=== PATIENT | male | born 1970 | race Caucasian/White ===

== ENCOUNTER 2017-11-06 16:35 | Observation (INO) | payer BC, OTHER ==
[2017-11-06 17:17] LABS: ABS Basophils 0.1 10^3/ul (0-0.2); ABS Eosinophils 0.2 10^3/ul (0-0.6); ABS Lymphocytes 2.6 10^3/ul (1.0-4.8); ABS Monocytes 0.8 10^3/ul (0-0.8); ABS Neutrophils 6.9 10^3/ul (1.5-7.7); ABS Nucleated RBC 0 10^3/ul; Eosinophil % 1.9 % (0-6); Hematocrit 47 % (42-52); Hemoglobin 16.4 g/dl (14.0-18.0); Lymphocyte % 24.7 % (25-47); Mean Corpuscular HGB Conc 35 g/dl (31-36); Mean Corpuscular Hemoglobin 32 pg (27-31); Mean Corpuscular Volume 90 fL (80-94); Mean Platelet Volume 7.3 um3 (7.4-10.4); Nucleated Red Blood Cells % 0.1; Platelet Count 219 10^3/ul (150-450); Red Blood Count 5.21 10^6/ul (4.00-5.40); Red Cell Distribution Width 14 % (10.5-15); White Blood Count 10.6 10^3/ul (3.5-10.8)
[2017-11-06] MEDS ORDERED: Nitroglycerin TAB 0.4 MG* 0.4 MG TAB SL ONE (17:23)
[2017-11-06] MEDS ORDERED: Aspirin 81 mg CHEW TAB* 81 MG TAB.CHEW PO ONE (17:23)
[2017-11-06 17:34] LABS: EGFR Non-African American 98.4 (>60)
--- NOTE | 2017-11-06 18:17 | RAD ---
indication: Dizziness and left shoulder pain COMPARISON: None A CT scan of the brain and c-spine was performed without intravenous contrast enhancement. Contiguous axial sections were obtained from the lung apices through the vertex. BRAIN: The ventricles, cisterns and sulci are within normal limits. No significant focal abnormality or mass effect is seen. The calderon-white differentiation is adequately maintained. There is no intracranial hemorrhage. Incidentally noted is hyperostosis frontalis interna. The calvarium is otherwise intact. The mastoid air cells are appropriately aerated. The visualized paranasal sinuses are clear. C-SPINE: On the sagittal view images the vertebral bodies and bilateral facet joints are correctly aligned. The dens is intact and the atlantoaxial interval is not widened. The intervertebral body heights are maintained. There is loss of intervertebral disc height at the lower cervical spine most severely affecting C6/C7 where there is vacuum disc phenomenon. There is anterior marginal osteophyte formation at C4/C5. There is no hyperdense material in the cervical canal to indicate hemorrhage. The visualized musculature and soft tissues are normal. At the level 2 cervical chain there are top normal lymph nodes measuring 1.4 cm in short axis diameter (coronal image 14). At the right level 3 cervical chain there is a lymph node measuring 8 mm in short axis diameter, again top normal but not pathologically enlarged. The visualized portion of the lung apices are clear. IMPRESSION: 1. No CT apparent acute abnormality of the brain. 2. Degenerative changes of the cervical spine without acute fracture or dislocation. 3. Top normal but not pathologically enlarged cervical chain lymph nodes.
[2017-11-06] MEDS ORDERED: hydrALAZINE IV* 20 MG/ML VIAL IV SLOW PU PRN (18:39)
[2017-11-06] MEDS ORDERED: Acetaminophen TAB* 325 MG PO PRN (18:42)
--- NOTE | 2017-11-06 19:16 | RAD ---
INDICATION: Chest pain x2 days COMPARISON: Chest x-ray dated March 09, 2005 TECHNIQUE: Single AP portable view of the chest was obtained. FINDINGS: Image quality is compromised due to the relative inferiority of a portable chest x-ray and by the patient's large body habitus. The heart appears enlarged. The pulmonary vasculature appears engorged and indistinct. There are hazy densities obscuring the bilateral lower lungs. There is bibasilar costophrenic angle blunting. Visualized bones are normal for the patient's age. IMPRESSION: In the correct clinical setting chest x-ray findings could BE compatible with cardiogenic pulmonary edema.
--- NOTE | 2017-11-06 21:44 | ED ---
Ari Abarca Jade, scribed for Rhina Maldonado MD on 11/06/17 at 1727 . Complex/Multi-Sys Presentation - HPI Summary HPI Summary: Pt is a 47 y/o male who presents to the ED c/o dizziness and neck pain. He states he woke up yesterday morning with pain in his left neck, left shoulder, and left ear, he thought due to sleeping position. Today he became dizzy when standing up quickly from bending over. Pt denies any LOC, CP, or trauma. He states the pain is non-radiating, and he has 4/10 level pain with movement of his neck. Pt took Ibuprofen yesterday, but denies any ASA. He had HTN and was borderline-diabetic, but is no longer hypertensive due to recent weight loss. Extensive FHx of heart disease: his father had an ascending aortic aneurysm at 52 y/o, 2 AAA, HTN, and DM, and his grandmother also had a AAA. Pt denies any PMHx of blood clots. - History Of Current Complaint Chief Complaint: EDChestPainROMI Time Seen by Provider: 11/06/17 16:59 Hx Obtained From: Patient Onset/Duration: Gradual Onset, Lasting Days - 2, Still Present Timing: Constant Aggravating Factor(s): Moving neck Associated Signs And Symptoms: Negative: Chest Pain - Allergies/Home Medications Allergies/Adverse Reactions: Allergies Allergy/AdvReac Type Severity Reaction Status Date / Time No Known Allergies Allergy Verified 11/06/17 16:41 Home Medications: Home Medications NK [No Home Medications Reported] 11/06/17 [History Confirmed 11/06/17] PMH/Surg Hx/FS Hx/Imm Hx Endocrine/Hematology History: Denies: Hx Blood Disorders - Blood clots, Hx Diabetes Cardiovascular History: Reports: Hx Hypertension - no meds, resolved due to weight loss Denies: Hx Deep Vein Thrombosis - Surgical History Surgery Procedure, Year, and Place: hernia repair x 6 Infectious Disease History: No Infectious Disease History: Denies: Traveled Outside the [place] in Last 30 Days - Family History Known Family History: Positive: Cardiac Disease - Ascending aortic aneurysm, AAA , HTN, Diabetes - Father - Social History Alcohol Use: None Substance Use Type: Reports: None Smoking Status (MU): Never Smoked Tobacco Review of Systems Negative: Chest Pain Positive: Myalgia - Left neck, ear, and shoulder Neurological: Other - Dizziness, NEGATIVE: LOC All Other Systems Reviewed And Are Negative: Yes Physical Exam - Summary Physical Exam Summary: GENERAL: Patient is a well-developed and nourished M who is lying comfortable in the stretcher. Patient is not in any acute respiratory distress. HEAD AND FACE: Normocephalic. EYES: PERRLA, EOMI x 2. EARS: Hearing grossly intact. MOUTH: Oropharynx within normal limits. NECK: Supple, trachea is midline, no adenopathy, no JVD, no carotid bruit. Tenderness to palpation behind left ear and by lateral left neck. CHEST: Symmetric, no tenderness at palpation LUNGS: Clear to auscultation bilaterally. No wheezing or crackles. CVS: Regular rate and rhythm, S1 and S2 present, no murmurs or gallops appreciated. ABDOMEN: Soft, non-tender. Bowel sounds are normal. No abdominal abnormal pulsations. EXTREMITIES: Full ROM in all major joints, no edema, no cyanosis or clubbing. NEURO: Alert and oriented x 3. No acute neurological deficits. Speech is normal and follows commands. SKIN: Dry and warm. GCS: 15 Triage Information Reviewed: Yes Vital Signs On Initial Exam: Initial Vitals Temp Pulse Resp BP Pulse Ox 98.9 F 67 17 220/82 98 11/06/17 16:37 11/06/17 16:37 11/06/17 16:37 11/06/17 16:37 11/06/17 16:37 Vital Signs Reviewed: Yes Diagnostics - Vital Signs Vital Signs Temp Pulse Resp BP Pulse Ox 11/06/17 16:37 98.9 F 67 17 220/82 98 - Laboratory Lab Results: Lab Results 11/06/17 Range/Units 17:09 WBC 10.6 (3.5-10.8) 10^3/ul RBC 5.21 (4.00-5.40) 10^6/ul Hgb 16.4 (14.0-18.0) g/dl Hct 47 (42-52) % MCV 90 (80-94) fL MCH 32 H (27-31) pg MCHC 35 (31-36) g/dl RDW 14 (10.5-15) % Plt Count 219 (150-450) 10^3/ul MPV 7.3 L (7.4-10.4) um3 Neut % (Auto) 64.8 (38-83) % Lymph % (Auto) 24.7 L (25-47) % [place] % (Auto) 7.8 H (0-7) % Eos % (Auto) 1.9 (0-6) % Baso % (Auto) 0.8 (0-2) % Absolute Neuts (auto) 6.9 (1.5-7.7) 10^3/ul Absolute Lymphs (auto) 2.6 (1.0-4.8) 10^3/ul Absolute Monos (auto) 0.8 (0-0.8) 10^3/ul Absolute Eos (auto) 0.2 (0-0.6) 10^3/ul Absolute Basos (auto) 0.1 (0-0.2) 10^3/ul Absolute Nucleated RBC 0 10^3/ul Nucleated RBC % 0.1 Result Diagrams: 11/06/17 17:09 11/06/17 17:09 Lab Statement: Any lab studies that have been ordered have been reviewed, and results considered in the medical decision making process. - Radiology CXR Xray Interpretation: Positive (See Comments) - 16:47: In the correct clinical setting chest x-ray findings could BE compatible with cardiogenic pulmonary edema. ED physician reviewed radiology report. Radiology Interpretation Completed By: Radiologist - CT Cervical Spine CT CT Interpretation Completed By: Radiologist - 17:22: 1. No CT apparent acute abnormality of the brain. 2. Degenerative changes of the cervical spine without acute fracture or dislocation. 3. Top normal but not pathologically enlarged cervical chain lymph nodes. ED physician reviewed radiology report. Brain CT CT Interpretation Completed By: Radiologist - 17:22: 1. No CT apparent acute abnormality of the brain. 2. Degenerative changes of the cervical spine without acute fracture or dislocation. 3. Top normal but not pathologically enlarged cervical chain lymph nodes. ED physician reviewed radiology report. - EKG 16:36 Cardiac Rate: NL - 66 bpm EKG Rhythm: Sinus Rhythm EKG Interpretation: Some ST elevation in V1, V2, V3, most likely secondary to LVH Complex Multi-Symp Course/Dx Course Of Treatment: Pt is a 47 y/o male who presents to the ED c/o dizziness and neck pain. He states he woke up yesterday morning with pain in his left neck , left shoulder, and left ear, he thought due to sleeping position. Today he became dizzy when standing up quickly from bending over. Pt denies any LOC, CP, or trauma. He states the pain is non-radiating, and he has 4/10 level pain with movement of his neck. Pt took Ibuprofen yesterday, but denies any ASA. He had HTN and was borderline-diabetic, but is no longer hypertensive due to recent weight loss. Extensive FHx of heart disease: his father had an ascending aortic aneurysm at 52 y/o, 2 AAA, HTN, and DM, and his grandmother also had a AAA. Pt denies any PMHx of blood clots. The physical exam revealed tenderness to palpation behind left ear and by lateral left neck, and a GCS of 15. A CXR revealed cardiogenic pulmonary edema. A brain and cervical spine CT revealed degenerative changes of the cervical spine. An EKG revealed normal rate at 66 bpm, normal rhythm, and some ST elevation in V1, V2, V3, most likely secondary to LVH. Dr. Billingsley spoke to Dr. Enriquez, who reviewed the EKG and thinks the ST elevation is secondary to LVH, and is not a STEMI. The workup was remarkable for glucose of 173 and a hemoglobin A1C of 7.6. Final dx is atypical chest pain. Dr. Lyon accepts the pt for admission for ACS evaluation given high HEART score. - Diagnoses Provider Diagnoses: Atypical chest pain - Physician Notifications Discussed Care Of Patient With: Sindy Enriquez Time Discussed With Above Provider: 17:00 Instructed by Provider To: Other - Dr. Billingsley spoke to Dr. Enriquez, who reviewed the EKG and thinks the ST elevation is secondary to LVH, and is not a STEMI. Discharge - Sign-Out/Discharge Documenting (check all that apply): Discharge/Admit/Transfer - Admit - Discharge Plan Condition: Stable Disposition: ADMITTED TO [facility] - Billing Disposition and Condition Condition: STABLE Disposition: Admitted to [facility] The documentation as recorded by the Ari sarmiento Jade accurately reflects the service I personally performed and the decisions made by me, Rhina Maldonado MD.
[2017-11-06] MEDS: Heparin VIAL(*) 5000 UNITS/ML VIAL (FIVE THOUSAND) SUBCUT SCH (22:39)
[2017-11-06] MEDS: Lisinopril TAB* 5 MG PO SCH (22:40)
--- NOTE | 2017-11-07 00:40 | HP ---
HOSPITAL MEDICINE HISTORY AND PHYSICAL: DATE OF ADMISSION: 11/06/17 PRIMARY CARE PHYSICIAN: There is no primary care physician. ATTENDING PHYSICIAN: Dr. Remy Salazar * (dictation provided by Erica Bourne NP). CHIEF COMPLAINT: Left-sided neck pain and episode of presyncope. HISTORY OF PRESENT ILLNESS: Mr. Serrano is a 47-year-old male with no significant past medical history. He states that he has recently lost about 50 pounds by improving his diet and being more active. He does not have primary care physician, but states that he checks his blood sugar every morning and notes that it has been about 140 in the a.m. fasting. He also checks his blood pressure and notices that it has been about 140/70. He yesterday described having an episode where he had pain in the left side of his neck. It radiated from his left ear down to the tip of his left shoulder. He noted it in the morning. 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 Today, he was lifting a 50-pound bag of pheasant feed and to do this, he had to bend at the waist and reach down. When he went to stand back up, he felt very lightheaded and like he was going to pass out. He describes feeling "super drunk." He did not really notice that he had this pain in his neck at the same time as this presyncopal episode. Because of the pain in his neck and now this episode of feeling very lightheaded, he decided to come to the emergency room for evaluation. He denies any headaches, fevers, chills, cough, chest pain, nausea, vomiting, diarrhea, or abdominal pain. He has been eating and drinking normally. In the emergency room, Mr. Serrano was noted to have a significantly elevated blood pressure to 220/82 on arrival. At the time of my examination, it is 176/ 78. He has not received any medications other than nitroglycerin tab. He had a troponin, which was 0.02. He had an EKG, which showed concern for multiple LVH criteria with poor R-wave progression and suggestion of ST elevations in V2 , V3, more likely just LVH. Because of the neck pain, he had a CT brain, which showed no acute abnormality and a cervical spine CT that only showed some top normal cervical lymph nodes in the cervical chain, but not pathologically enlarged. His labs were unremarkable. PAST MEDICAL HISTORY: Only noted for vein stripping on his lower extremities. MEDICATIONS: None. ALLERGIES: None. FAMILY HISTORY: The patient reports his mother in a car accident. His father is alive and well, but he had a history of aortic aneurysm 10 years ago. He also has hypertension and diabetes. SOCIAL HISTORY: The patient has never been a smoker. He drinks alcohol occasionally. No reported drug use. He states his dad will be the healthcare proxy. REVIEW OF SYSTEMS: A 14-point review of systems was completed with Mr. Serrano and all those not mentioned above were negative. PHYSICAL EXAMINATION GENERAL: Mr. Serrano is sitting in the bed with his friend at the bedside. He is in no acute distress. VITAL SIGNS: Temperature 98.9, pulse rate 65, respiratory rate 26, O2 saturation 94% on room air, blood pressure 185/78. NECK: The patient's neck was palpated and he has significant tenderness along the top of both shoulders with tender tight muscles. LUNGS: Clear to auscultation bilaterally with no accessory muscle use and good aeration. HEART: S1, S2. There appears to be a systolic murmur at the sternal border. There are no carotid bruits. The rhythm is regular. ABDOMEN: Soft, nontender with bowel sounds positive x4. EXTREMITIES: No cyanosis or edema. NEURO: He is alert. He is oriented x3. He moves all extremities equally. There is no facial asymmetry or focal weakness. Extraocular movements are intact. SKIN: Intact and the patient is wearing bilateral lower extremity venous stasis compression stockings. DIAGNOSTIC STUDIES/LAB DATA: WBC 10.6, hemoglobin 16.4, hematocrit 47, platelet count 219. Sodium 144, potassium 4.0, chloride 103, serum bicarbonate 33, BUN 14, creatinine 0.84, glucose 174 EKG shows sinus rhythm with LVH and I do not see any clear evidence of ischemia. I do see that the J-point is elevated in V2, V3, V4. CT brain and cervical spine CT read as follows: "No CT apparent acute abnormality of the brain. Degenerative changes of the cervical spine without acute fracture, dislocation. Top normal but not pathologically enlarged cervical chain lymph nodes." ASSESSMENT: Mr. Serrano is a 47-year-old male with no known past medical history, who presents today to the hospital with concern for episode where his left side of his neck was hurting and then an episode of presyncope when he bent over. Our plans are for observation in the hospital for the followin. Left neck pain. The patient's CT brain and cervical spine CT are negative. He has no carotid bruit. He is tender to palpation along the trapezius muscles. I suspect this is a simple muscle strain. He is asymptomatic at this moment. He can have analgesic such acetaminophen p.r.n. 2. Presyncope. The patient states that this happened in the setting of bending over and rapidly standing up and lifting a large bag of bird feed. Question whether or not this was somewhat related to uncontrolled hypertension as his blood pressure has been running over 220 here in the emergency room. Our plans will be to treat as per below. 3. Hypertensive emergency. The patient's blood pressure was in the 220s. He is describing episodes of presyncope and he meets criteria for hypertensive emergency. His blood pressure is slightly better even without treatment, now it is 180/80s. He will be started on lisinopril (as I am very suspicious that he will have a positive diagnosis for diabetes) with hydralazine p.r.n. and we can titrate his medications as needed. 4. Left ventricular hypertrophy. The patient's EKG is concerning for significant left ventricular hypertrophy and it seems that the patient does perhaps have ongstanding untreated hypertension now with presyncopal episode. I think the best plan will be to obtain a transthoracic echocardiogram. The patient has no evidence of chest pain. Plan to continue to trend troponins; an monitor on the telemetry unit. If the patient does develop chest pain, other symptoms or troponins rise, then a stress testing can be considered. 5. Elevated blood sugar. The patient's blood sugar was reported to be 140 at home in the a.m. I am highly suspicious that he will have a diagnosis of diabetes and hemoglobin A1c has been added on. 6. Obesity. The patient states he has lost about 50 pounds, but he is still quite overweight. He has uncontrolled blood pressure and I suspect uncontrolled diabetes. We will add on fasting lipid profile as well. 7. DVT prophylaxis with heparin subcu. 8. Code status is full code. TIME SPENT: Approximately 60 minutes were spent on the admission of this patient, more than half of the time was spent with the patient at the bedside reviewing the events leading up to this hospitalization, performing the physical examination, and reviewing the plan of care. ERICA BORUNE NP [id number]/[facility] #: [id number] GUZMAN
[2017-11-07] MEDS ORDERED: hydrALAZINE IV* 20 MG/ML VIAL IV SLOW PU ONE (05:00)
[2017-11-07] MEDS: Heparin VIAL(*) 5000 UNITS/ML VIAL (FIVE THOUSAND) SUBCUT SCH ×2 (05:54→13:51)
[2017-11-07] MEDS: amLODIPine TAB* 5 MG PO SCH ×2 (06:24→09:02)
[2017-11-07] MEDS ORDERED: Perflutren Lipid Microsphere* 3 ML VIAL ONE (08:30)
[2017-11-07] MEDS: Lisinopril TAB* 5 MG PO SCH (09:02)
[2017-11-07 11:52] VITALS: BP 177/75
[2017-11-07] MEDS ORDERED: amLODIPine TAB* 5 MG PO ONE (12:08)
--- NOTE | 2017-11-07 12:40 | ECHO ---
Patient: QUENTIN SPARKS [facility] Rec#: [id number] : 1970 Date: 11/07/2017 Age: 47y Height: 182.9 cm / 72.0 in Weight: 150.6 kg / 331.9 lbs Sex: M BSA: 2.64 Room#: [facility] Admit Date#: 11/06/2017 Referring: Erica Bourne NP Reading: Gigi Hardin MD Tumbler Tender: Merlene Rand RN RDCS Transthoracic Echocardiogram Indication: Hypertensive crisis, LVH on EKG BP: 182/65 HR: 70 Rhythm: NSR Findings History: Morbid obesity, vein stripping Technical Comments: The study is technically limited due to poor acoustic windows. The study is technically limited due to patient body habitus. Left Ventricle: The left ventricular chamber size is normal. Severe concentric left ventricular hypertrophy is observed. Global left ventricular wall motion and contractility are within normal limits. There is normal left ventricular systolic function. The estimated ejection fraction is 60-65%. Abnormal left ventricular diastolic filling is observed, consistent with impaired relaxation. Left Atrium: The left atrium is moderate to severely dilated. Right Ventricle: The right ventricle wall thickness is mildly increased. The right ventricle is slightly dilated. The right ventricular global systolic function is normal. Right Atrium: The right atrium is not well visualized. The right atrium is moderately dilated. Aortic Valve: The aortic valve structure is not well visualized. There is mild aortic regurgitation. There is mild to moderate aortic stenosis. The mean gradient of the aortic valve is 24 mmHg. The peak instantaneous gradient of the aortic valve is 42 mmHg. The highest aortic valve velocity was obtained with the standard probe from the A3C view. Mitral Valve: Moderate mitral annular calcification present. The mitral valve leaflets are mildly thickened. There is no evidence of mitral regurgitation. There is no evidence of mitral stenosis. Tricuspid Valve: The tricuspid valve structure is not well visualized. There is trace tricuspid regurgitation. Unable to estimate the right ventricular systolic pressure. There is no tricuspid stenosis. Pulmonic Valve: The pulmonic valve structure is not well visualized. Pericardium: There is no significant pericardial effusion. A pericardial fat pad is visualized. Aorta: There is mild dilatation of the ascending aorta. There is no dilatation of the aortic arch. There is mild dilatation of the aortic root. Pulmonary Artery: The main pulmonary artery is not well visualized. Venous: The inferior vena cava appears normal in size. There is a greater than 50% respiratory change in the inferior vena cava dimension. Contrast: Definity was used to optimize study. A total of 4 ml of diluted Definity was given IV. Summary: There was not any prior study for comparison. Conclusions Severe concentric left ventricular hypertrophy is observed. Global left ventricular wall motion and contractility are within normal limits. There is normal left ventricular systolic function. The estimated ejection fraction is 60-65%. The right ventricular global systolic function is normal. There is mild to moderate aortic stenosis. The mean gradient of the aortic valve is 24 mmHg. There is mild aortic regurgitation. There is no evidence of mitral regurgitation. There is no evidence of mitral stenosis. There is trace tricuspid regurgitation. Unable to estimate the right ventricular systolic pressure. There is no significant pericardial effusion. There is mild dilatation of the ascending aorta. Measurements Name Value Normal Range RVDdMajor (2D) 4.5 cm (2.2 - 4.4) RAd ISD 4CH 6.3 cm (3.4 - 4.9) IVSd (2D) 1.8 cm (0.6 - 1) LVPWd (2D) 1.8 cm (0.6 - 1) LVIDd (2D) 5.4 cm (3.6 - 5.4) LVIDs (2D) 3.9 cm - LV FS (2D) 28 % (25 - 45) EF Teichholz (2D) 53 % - Aortic Annulus 2.9 cm (1.4 - 2.6) Ao root diameter (2D) 3.1 cm (2.1 - 3.5) Ascending Ao 3.8 cm (2.1 - 3.4) Aortic arch 3.1 cm (1.8 - 3.4) LA dimension (AP) 2D 4.5 cm (2.3 - 3.8) LAd ISD 4CH 6.4 cm (2.9 - 5.3) LA ISD 4CH W 6.3 cm (2.5 - 4.5) Name Value Normal Range LA ESV SP 4CH (A/L) 172 ml - LA ESV SP 2CH (A/L) 127 ml - LA ESV BP (A/L) 150 ml - LA ESV BP (A/L) index 56.7 ml/m2 - LA ESV SP 4CH (MOD) 161 ml - LA ESV SP 2CH (MOD) 123 ml - Name Value Normal Range MV E-wave Vmax 0.89 m/sec - MV deceleration time 242 msec - MV A-wave Vmax 1.1 m/sec - MV E:A ratio 0.81 ratio - LV septal e' Vmax 0.06 m/sec - LV lateral e' Vmax 0.05 m/sec - LV E:e' septal ratio 14.8 ratio - LV E:e' lateral ratio 17.8 ratio - Name Value Normal Range AV Vmax 3.2 m/sec - AV VTI 64.4 cm - AV peak gradient 42 mmHg - AV mean gradient 24 mmHg - LVOT diameter 2.5 cm - LVOT Vmax 1.5 m/sec - LVOT VTI 36.5 cm - LVOT peak gradient 8.8 mmHg - LVOT mean gradient 6.1 mmHg - DOI (VTI) 0.57 ratio - DOI (Vmax) 0.47 ratio - ELVIRA (continuity Vmax) 2.3 cm2 - ELVIRA (continuity VTI) 2.8 cm2 - MAURILIO Vmax 1.5 m/sec - Name Value Normal Range IVC diameter 1.8 cm - Name Value Normal Range PV Vmax 0.66 m/sec -
[2017-11-08] MEDS ORDERED: amLODIPine TAB* 5 MG PO SCH (09:00)
--- NOTE | 2017-11-09 03:56 | DS ---
CC: [facility] * DISCHARGE SUMMARY: DATE OF ADMISSION: 11/06/17 DATE OF DISCHARGE: 11/07/17 PRIMARY CARE PROVIDER: The patient has no primary care provider. MY ATTENDING WHILE IN THE HOSPITAL: Dr. Lucius Salazar.* (DICTATED BY DANNIELLE BAZZI) PRIMARY DISCHARGE DIAGNOSES: 1. Hypertensive urgency. 2. Dizziness. 3. Diabetes. SECONDARY DISCHARGE DIAGNOSES: 1. Obesity. 2. Varicose veins. STUDIES DONE WHILE IN THE HOSPITAL: Chest x-ray from 11/06/17 read as in the current clinical setting chest x-ray findings could be compatible with cardiogenic pulmonary edema. Electrocardiogram from 11/06/17 read as left ventricular hypertrophy, strain pattern, early repolarization in V1, V2, V3 and V4, T-wave inversions in I and aVL, possible left atrial enlargement, rate 66, QTc of 447. No study available for comparison. Repeat EKG from 11/07/17 shows resolution of strain pattern in V2, V3, and V4. Resolution of T-wave inversions in I and aVL. Persistent left atrial enlargement. No other abnormalities. Brain CT read as no CT apparent acute abnormality of the brain. Degenerative changes of the cervical spine without acute fracture or dislocation. Top normal , but not pathologically enlarged cervical chain lymph nodes. Transthoracic echocardiogram from 11/06/17 read as fair concentric left ventricular hypertrophy, global left ventricular wall motion contractility within normal limits. Normal left ventricular systolic function, estimated ejection fraction of 60 to 65%. Left ventricular global systolic function is observed. Mild-to- moderate aortic stenosis. The mean gradient of the aortic valve was 24 mmHg. Some mild aortic regurgitation. There is no evidence of mitral regurgitation. There is no evidence of mitral stenosis. There is trace tricuspid regurgitation. I will estimate the right ventricular systolic pressure. No significant pericardial effusion. Mild dilatation of the ascending aorta. MEDICATIONS AT DISCHARGE: 1. Tylenol 650 mg q.6 hours as needed. 2. Amlodipine 10 mg p.o. daily. 3. Lisinopril 5 mg p.o. q.p.m. 4. Metformin 500 mg p.o. b.i.d. HOSPITAL COURSE: This is a brief summary of the patient's presentation. For more details, please see the history and physical from Erica Bourne NP on . In brief, the patient is a 47-year-old male with past medical history significant for severe obesity, status post significant weight loss as well as the above, who presented with some dizziness upon standing up associated with posterior neck pain with presyncope. The patient states that this has happened before. The patient was recently treated for an ear infection where he did not have similar episodes. He was treated in July for that. The patient came into the emergency room due to lightheadedness and was found to have an elevated of 220/82, which decreased with nitroglycerin. The patient had an EKG read as above with concave ST depressions in V2, V3 and V4. The patient had a CT of the brain and neck, which was read as above. The patient was started on lisinopril and amlodipine. The patient was admitted for hospital and the patient never had any chest discomfort. The patient had 3 negative troponins. The patient had a transthoracic echocardiogram, which showed severe left ventricular hypertrophy as above, likely a result of longstanding uncontrolled hypertension. The patient's blood pressure decreased from high of 220/82 to approximately 177/75 at the time of discharge. The patient had no other vital sign abnormalities. The patient stated that he had pain with palpation around his left ear, which was not present when he previously had an ear infection. The patient also stated that he had the pain in his neck was radiating down from his ear. The patient had a negative otoscopic exam and no vital sign abnormalities consistent with inner ear infection. The patient's states that he snores and frequently stops breathing momentarily during the night time , frequently necessitating her waking him up because she is concerned of his apnea. The patient has never had a formal sleep study. The patient complains of persistently enlarged tonsils and the patient had also a slight episode of dizziness upon standing overnight from 11/06/17 to 11/07/17, but this passed quickly. The patient had no shortness of breath. The patient had an elevated hemoglobin A1c of 7.6. The patient has an LDL of 82, elevated triglycerides of 205, HDL cholesterol of 41.9. The patient was stable and amenable for discharge on 11/08/17. PHYSICAL EXAMINATION ON THE DAY OF DISCHARGE: General: The patient is a 47- year- old male who appears his stated age and is sitting comfortably in bed, in no acute distress. Vital Signs: At the time of discharge, temperature 97.9, pulse rate 59, respiratory rate 18, oxygen saturation 96% on room air, blood pressure 177/75. HEENT: Head normocephalic, atraumatic. Sclerae are anicteric. No conjunctival injection. Nasal mucosa moist. Oral mucosa moist. No pharyngeal erythema, discharge or exudate. Enlarged tonsils. Otoscopic exam reveals intact cone of light. No bulging, erythema. Significant ear wax in the bilateral ears. Neck: Supple, nontender. No lymphadenopathy. No carotid bruits auscultated. No JVD. Cardiac: Regular rate and rhythm. No clicks, murmurs, gallops or rubs. No S3, S4. Pulses are 2+ in bilateral dorsalis pedis, posterior tibialis and radial areas. The patient is wearing compression stockings. No bilateral lower extremity edema noted. Respiratory: Clear to auscultation bilaterally. No wheezes, rales or rhonchi. Good air exchange bilaterally. Abdomen: Soft, nontender, nondistended with bowel sounds present and normoactive in all 4 quadrants. No hepatosplenomegaly. No abdominal bruits auscultated. No hepatojugular reflux. Genitourinary: No suprapubic or CVA tenderness. Skin: Clean, dry and intact. No rash. Neuro: Cranial nerves II through XII are intact. No focal deficits. Alert and oriented x3. No nystagmus. Normal gait. Psychiatric: Pleasant and cooperative. DISCHARGE PLAN: The patient will be discharged to home. The patient will be started on amlodipine, which dose was increased to 10 mg p.o. daily as well as lisinopril 5 mg p.o. daily. The patient on his day of discharge had his amlodipine increased from 5 to 10 mg with moderate response in blood pressure due to concern for lowering blood pressure quickly in the setting of longstanding hypertension. No additional agents were started. At the time of discharge, the patient was not having any signs of end organ damage. The patient will be referred to the [facility] for a repeat assessment of his blood pressure as well as adjustment to his treatment based on these readings. The patient will also take his blood pressure at home daily and take these readings to the [facility]. The patient will check his blood sugar in the morning. The patient previously had fasting levels around 140. The patient will be started on metformin 500 mg p.o. b.i.d. The patient will be monitored for adverse reaction to this medication. The patient should have a repeat assessment of his ear for concern for chronic pathology that may be causing his dizziness and neck pain. The patient had no clinical signs or CT evidence of mastoiditis or other inner ear infection on imaging. So, no antibiotics were initiated. There should be consideration for formal sleep study as the patient has hypertension as well as witnessed episodes of apnea by his . The patient would like the effect from CPAP therapy. The patient should have lost purposefully over 70 pounds from his peak weight. The patient is motivated for additional weight loss through exercise and diet. The patient should continue with his diet as he has been with heart-healthy diet and consistent carbohydrate. The patient should engage in activities as tolerated with moderate intensity exercise for weight loss. The patient should follow up with the primary care provider as soon as an appointment is established. He can start follow up with the [facility] for up to 30 days after discharge. TIME SPENT: Approximately 60 minutes were spent on this discharge, 40 of which was spent [id number] with the patient obtaining history and physical and discussing the treatment plan. DANNIELLE BAZZI [id number]/[facility] #: [id number] GUZMAN
== END 2017-11-07 15:20 | disposition home or self-care (01) ==
LOC: ED 16:35 → MEDTELE 18:35
PROVIDERS: ADMIT Hospitalist; ATTEND Student in an Organized Health Care Education/Training Program
DX: I16.0 Hypertensive urgency (principal); R42 Dizziness and giddiness; E11.9 Type 2 diabetes mellitus without complications; R07.89 Other chest pain; M54.2 Cervicalgia; E66.9 Obesity, unspecified; I83.90 Asymptomatic varicose veins of unspecified lower extremity
CPT/HCPCS: 36415; 70450; 71045; 72125; 80053; 80061; 83036; 83605; 84484; 85025; 93005; 93306; 96365; 96367; 99283; A9270-GY; C8929; G0378; J0360; J1644

== ENCOUNTER 2017-11-09 18:12 | Inpatient (IN) | payer OTHER ==
[2017-11-09] MEDS ORDERED: Meclizine TAB* 12.5 MG PO ONE (18:26)
[2017-11-09] MEDS ORDERED: Ondansetron ODT TAB* 4 MG PO ONE (18:26)
[2017-11-09 18:57] LABS: ABS Basophils 0 10^3/ul (0-0.2); ABS Eosinophils 0 10^3/ul (0-0.6); ABS Lymphocytes 1.8 10^3/ul (1.0-4.8); ABS Monocytes 0.7 10^3/ul (0-0.8); ABS Neutrophils 13.4 10^3/ul (1.5-7.7); ABS Nucleated RBC 0 10^3/ul; Eosinophil % 0.2 % (0-6); Hematocrit 50 % (42-52); Hemoglobin 17.2 g/dl (14.0-18.0); Lymphocyte % 11.3 % (25-47); Mean Corpuscular HGB Conc 35 g/dl (31-36); Mean Corpuscular Hemoglobin 31 pg (27-31); Mean Corpuscular Volume 90 fL (80-94); Mean Platelet Volume 7.5 um3 (7.4-10.4); Nucleated Red Blood Cells % 0.1; Platelet Count 205 10^3/ul (150-450); Red Blood Count 5.57 10^6/ul (4.00-5.40); Red Cell Distribution Width 14 % (10.5-15); White Blood Count 16.1 10^3/ul (3.5-10.8)
[2017-11-09] MEDS ORDERED: Metoclopramide IV* 5 MG/ML 2 ML VIAL IV ONE (18:58)
--- NOTE | 2017-11-09 20:02 | RAD ---
In the patient: Dizziness. CT of the brain was performed without IV contrast. Ventricular structures are midline. No midline shift is noted. The extra-axial spaces are unremarkable. There is no evidence of intracranial mass or hemorrhage. No other high or low density lesions are identified. Mastoid air cells and paranasal sinuses are unremarkable. No changes noted since November 06, 2017. IMPRESSION: No intracranial mass or hemorrhage is noted.
--- NOTE | 2017-11-09 20:49 | ED ---
Virginia Abarca Emily, scribed for Brad Billingsley on 11/09/17 at 1825 . Dizziness - HPI Summary HPI Summary: This patient is a 47 year old M BIBA to [facility] accompanied by father with a chief complaint of dizziness that began 1720. The patient rates the pain 0/10 in severity. Symptoms aggravated by movement. Symptoms alleviated by nothing. Patient reports R ear pain, nausea, and vomiting. Patient denies CP and SOB. The patient reports being discharged from the ED and was diagnosed hypertension and diabetes. - History Of Current Complaint Stated Complaint: NAUSEA/VOMITING Time Seen by Provider: 11/09/17 18:17 Hx Obtained From: Patient Onset/Duration: Still Present Timing: Constant Character: Room Spinning Aggravating Factor(s): Other - Positive movement Alleviating Factor(s): Nothing Associated Signs And Symptoms: Positive: Other: - Positive R ear pain, nausea, and vomiting. Negative CP and SOB - Allergies/Home Medications Allergies/Adverse Reactions: Allergies Allergy/AdvReac Type Severity Reaction Status Date / Time No Known Allergies Allergy Verified 11/06/17 16:41 Home Medications: Home Medications metFORMIN* [Glucophage 500 MG TAB *] 500 mg PO BID 11/09/17 [History Confirmed 11/09/17] PMH/Surg Hx/FS Hx/Imm Hx Previously Healthy: No Endocrine/Hematology History: Denies: Hx Blood Disorders - Blood clots, Hx Diabetes Cardiovascular History: Reports: Hx Hypertension - no meds, resolved due to weight loss Denies: Hx Deep Vein Thrombosis Sensory History: Denies: Hx Contacts or Glasses, Hx Hearing Aid Opthamlomology History: Denies: Hx Contacts or Glasses - Surgical History Surgery Procedure, Year, and Place: hernia repair x 6 - Family History Known Family History: Positive: Cardiac Disease - Ascending aortic aneurysm, AAA , HTN, Diabetes - Father - Social History Occupation: Employed Full-time Lives: Alone Alcohol Use: None Hx Substance Use: No Substance Use Type: Reports: None Hx Tobacco Use: No Smoking Status (MU): Never Smoked Tobacco Review of Systems Positive: Ear Ache Negative: Chest Pain Negative: Shortness Of Breath Positive: Vomiting, Nausea Neurological: Other - Positive dizziness All Other Systems Reviewed And Are Negative: Yes Physical Exam - Summary Physical Exam Summary: Appearance: Well appearing, no pain distress Skin: warm, dry, reflects adequate perfusion Head/face: normal Eyes: EOMI, CASSIDY ENT: normal Neck: supple, non-tender Respiratory: CTA, breath sounds present Cardiovascular: RRR, pulses symmetrical Abdomen: non-tender, soft Bowel: present Musculoskeletal: normal, strength/ROM intact Neuro: normal, sensory motor intact, A&Ox3 Triage Information Reviewed: Yes Vital Signs Reviewed: Yes Diagnostics - Laboratory Result Diagrams: 11/09/17 18:49 11/09/17 18:49 Lab Statement: Any lab studies that have been ordered have been reviewed, and results considered in the medical decision making process. - Radiology Abdomen XR Radiology Interpretation Completed By: ED Physician - Abdomen XR reveals, per ED physician, no acute disease. - CT Brain CT CT Interpretation Completed By: Radiologist - Brain CT reveals, per radiologist , no intracranial mass or hemorrhage is noted. ED physician has reviewed this radiology report. - EKG 1821 Cardiac Rate: NL EKG Rhythm: Sinus Rhythm - [address] Segment: Normal Ectopy: None EKG Interpretation: No acute changes Re-Evaluation - Re-Evaluation First Eval Re-Evaluation Time: 18:54 Change: Worse Comment: Pt is currently vomiting Dizzy Course/Dx - Course Course Of Treatment: This patient is a 47 year old M BIBA to [facility] accompanied by father with a chief complaint of dizziness that began 1720. Brain CT reveals , per radiologist, no intracranial mass or hemorrhage is noted. Blood work and UA obtained. Abdomen XR reveals, per ED physician, no acute disease. In the ED course the patient was given Zofran, Antivert, and Reglan. Consult with Dr. Dawkins (hospitalist) at 2028. He agrees to admit pt for further evaluation. The patient is agreeable with this plan. - Diagnoses Differential Diagnosis/HQI/PQRI: Benign Paroxysmal Positional Vertigo, Dysrhythmia, Labyrinthitis, Vasovagal Reaction Provider Diagnoses: Dizziness, Vomiting, Vertigo - Provider Notifications Discussed Care Of Patient With: Chad Dawkins Time Discussed With Above Provider: 20:29 Instructed by Provider To: Other - Consult with Dr. Dawkins (hospitalist) at 2028. He agrees to admit pt for further evaluation. Discharge - Sign-Out/Discharge Documenting (check all that apply): Discharge/Admit/Transfer - Admit - Discharge Plan Condition: Stable Disposition: ADMITTED TO [facility] - Billing Disposition and Condition Condition: STABLE Disposition: Admitted to [facility] The documentation as recorded by the Virginia sarmiento Emily accurately reflects the service I personally performed and the decisions made by , Brad Billingsley.
[2017-11-09] MEDS ORDERED: Magnesium Hydroxide LIQ* 30 ML UDC PO PRN (20:50)
[2017-11-09] MEDS ORDERED: Ondansetron INJ* 2 MG/ML VIAL IV PRN (20:50)
[2017-11-09] MEDS ORDERED: Albuterol 2.5 MG/3 ML NEB.SOL* (0.083%) INH PRN (20:50)
[2017-11-09] MEDS ORDERED: Al Hydrox/Mg Hydrox/Simet LIQ* 30 ML UDC PO PRN (20:50)
--- NOTE | 2017-11-09 20:51 | RAD ---
Indication: Vomiting. Flat plate of the abdomen demonstrates nonspecific bowel gas pattern. Patient is status post right lower quadrant hernia repair. No organomegaly is noted. IMPRESSION: Nonspecific bowel gas pattern. Postoperative changes are noted.
[2017-11-09] MEDS ORDERED: Meclizine TAB* 12.5 MG PO PRN (20:57)
[2017-11-09] MEDS ORDERED: Dextrose 50% Syringe 50 ML* 25 GM/50 ML SYRINGE IV PUSH PRN (20:57)
[2017-11-09] MEDS ORDERED: Levofloxacin 750 MG IVPREMIX(* 750 MG/150 ML BAG IVPB ONE (21:05)
--- NOTE | 2017-11-09 21:34 | RAD ---
Indication: Shortness of breath, hypoxia. Single frontal view of the chest performed at 2100 hours was reviewed. Comparison is made with previous exam dated November 06, 2018. No mediastinal shift is noted. Heart is of normal size and configuration. Lung webber appear clear. IMPRESSION: NO ACTIVE CARDIOPULMONARY DISEASE IS NOTED.
[2017-11-09] MEDS: hydrALAZINE IV* 20 MG/ML VIAL IV SLOW PU PRN (23:07)
[2017-11-09] MEDS: Insulin LISPRO* 1 UNITS UNIT SUBCUT SCH (23:16)
--- NOTE | 2017-11-09 23:16 | HP ---
CC: Dr. Prince Hansen at [facility] * ADMISSION HISTORY AND PHYSICAL: DATE OF ADMISSION: 11/09/17 ATTENDING HOSPITALIST: Dr. Chad Dawkins.* (DICTATED BY DANNIELLE JIMENEZ ) PRIMARY CARE PHYSICIAN: The patient does not have primary care physician; however, he was scheduled at [facility] for a followup next week. CHIEF COMPLAINT: Dizziness, fever, diaphoresis and occasional dyspnea on exertion. HISTORY OF PRESENT ILLNESS: Mr. Serrano is a 47-year-old gentleman, who was recently discharged from the hospital 2 days ago after a brief hospitalization related to hypertensive emergency and a presyncopal episode. He was prior to that has no significant past medical history until then. He was also found to have a glucose intolerance for which he started on metformin that he just took yesterday and today. He has been suffering from morbid obesity, but recently lost about 50 pounds by improving his diet and being more active. He was admitted a few days ago with hypertensive emergency and presyncopal episode, and had some workup ruled out any possible cardiac origin. He was discharged home on the with Norvasc and lisinopril as well as metformin for control of his diabetes and hypertension. He reports not feeling very well since discharged from the hospital. He continued to have episodes of dizziness usually with turning his head and he has known history of intermittent middle ear infection. He also reports associated nausea and vomiting when he gets dizzy. He has not been feeling well today. He felt diaphoretic with low-grade fever and occasional dyspnea on exertion. He came to the emergency room earlier this evening and was evaluated, found to have low oxygen saturation on room air for which he was given oxygen at 2 L per minute via nasal cannula that improved his saturation to a 96%. He was also found to have leukocytosis with white count of 16,000 as well as low-grade fever. He continued to have dizziness every time he turned his head and he was also found to be hypertensive despite initiation of Norvasc and lisinopril. Given all his ongoing symptoms, the patient was evaluated and decided to be admitted for observation and to rule out any possibility of a cardiopulmonary issue. At that time of admission, his D-dimer and chest x-ray are pending. PAST MEDICAL HISTORY: He has a history of varicose veins for which he had a vein stripping of his lower extremity and most recently with a history of hypertension and type 2 diabetes mellitus that was diagnosed during last admission. PAST SURGICAL HISTORY: Significant for vein stripping of both lower extremities due to history of varicose veins. CURRENT MEDICATIONS: Medication at home starting on the included: 1. Metformin 500 mg p.o. b.i.d. 2. Tylenol 650 mg p.o. q.6 hours as needed for fever or pain. 3. Norvasc 10 mg p.o. daily. 4. Lisinopril 5 mg p.o. daily. ALLERGIES: He has no known drug allergies. FAMILY HISTORY: Reports that his mother in a car accident. His father had a history of aortic aneurysm 10 years ago. He also has a history of hypertension and diabetes. SOCIAL HISTORY: The patient has never been a smoker. He drinks alcohol occasionally. He denies illicit drug use and his dad is the healthcare proxy carrier. REVIEW OF SYSTEMS: See HPI. Otherwise, 14-point review of systems were evaluated and they were essentially negative. PHYSICAL EXAMINATION GENERAL: He is pleasant, morbidly obese, middle-aged gentleman, appears diaphoretic and slightly anxious, but in no acute distress or discomfort. VITAL SIGNS: Today revealed blood pressure of 183/75 upon arrival that went down to 174/75 during admission, his heart rate is 70, temperature of 96.3 after he took Tylenol at home, respirations of 15, and O2 sat of 93% on 2 L oxygen via nasal cannula. HEENT: Head is normocephalic, atraumatic. Sclerae anicteric. PERRLA. EOMs intact. Oropharynx is pink and moist. NECK: Supple. Trachea midline. No cervical adenopathy, thyromegaly, or JVD. LUNGS: Decreased breath sounds was noted bilaterally, but there was no rales, wheezes, or rhonchi. HEART: Regular rate and rhythm. Normal S1 and S2 without rubs, murmurs, or gallops. BACK: With normal curvature. No CVA tenderness. ABDOMEN: Soft, round, and obese. There are no hernias, masses, or hepatosplenomegaly. There is no tenderness or distention. No rebound tenderness or tympany. EXTREMITIES: Without cyanosis, clubbing, or edema. NEUROLOGIC: He is awake, alert, and oriented x4. Neurological exam was grossly normal. RECTAL: Exam deferred at this time. LABORATORY WORKUP: CBC with white count of 16,000, hemoglobin of 17.2, hematocrit of 50, and platelets of 205. Chemistry panel was sodium of 140, potassium 4.2, chloride 101, CO2 of 28, BUN of 17, and creatinine of 0.89. His glucose is 234. Hemoglobin A1c was checked back on 11/06/17 with a value of 7.6. LFTs within normal limits. ACCESSORY DIAGNOSTIC DATA: The patient had a brain CT upon presentation to ED that was essentially negative for any acute hemorrhage. Abdominal flat films with no evidence of bowel obstruction. His portable chest x-ray is pending at the time of admission. IMPRESSION: A 47-year-old gentleman, who was recently discharged from the hospital with new diagnosis of hypertension, type 2 diabetes mellitus, who also experienced recurrent episode of dizziness and vertigo related to a recurrent middle ear infections, who presented to the emergency room today with worsening dizziness with associated nausea, vomiting as well as fever, diaphoresis, and was found to have leukocytosis and decreased oxygen saturation at room air and will be admitted for observation in telemetry for evaluation of possible pulmonary etiology. ASSESSMENT AND PLAN: 1. Acute respiratory failure. The patient appears to be stable at this time with no dyspnea at rest. He is maintaining his oxygen saturation at 96% to 97% with 2 L oxygen. I will await the results of his chest x-ray, but given his fever and leukocytosis, we will cover him prophylactically with antibiotic. I also will check a D-dimer to rule out any possibility of pulmonary embolism. 2. Chronic dizziness and vertigo likely related to middle or inner ear issue. We will continue his meclizine as needed and treat him symptomatically for associated nausea or vomiting. He experienced no abdominal tenderness on exam and it is likely secondary to his dizziness. 2. Fever and leukocytosis, unclear of the etiology. At this time, we will cover him prophylactically with antibiotic. I will obtain blood culture and a chest x- ray is pending at this time. 3. Hypertension. We will maintain his home meds including Norvasc and lisinopril, and I also added hydralazine IV push as needed for systolic blood pressure greater than 170. 4. Diabetes mellitus, again a new diagnosis. We will hold his metformin for now and he will be covered with lispro per sliding scale and we will follow him up accordingly. 5. DVT prophylaxis. The patient is at moderate risk and for this time he will be covered with SCDs. 6. Code status. He is a full code. 7. Disposition. Admit to telemetry for observation and oxygen supplementation as well as a prophylactic antibiotic, awaiting clear etiology for his fever and leukocytosis. TIME SPENT: Approximately 55 minutes were spent admitting this patient with greater than 50% on taking history and performing physical exam. I have discussed the plan of care with Dr. Dawkins, who agrees and we will follow him up accordingly. DANNIELLE JIMENEZ [id number]/[facility] #: [id number] GUZMAN
[2017-11-10] MEDS: Acetaminophen TAB* 325 MG PO PRN ×4 (00:51→21:04)
[2017-11-10 05:56] LABS: ABS Basophils 0 10^3/ul (0-0.2); ABS Eosinophils 0 10^3/ul (0-0.6); ABS Lymphocytes 1.8 10^3/ul (1.0-4.8); ABS Monocytes 0.9 10^3/ul (0-0.8); ABS Neutrophils 13.4 10^3/ul (1.5-7.7); ABS Nucleated RBC 0 10^3/ul; Eosinophil % 0 % (0-6); Hematocrit 47 % (42-52); Hemoglobin 16.1 g/dl (14.0-18.0); Lymphocyte % 11.1 % (25-47); Mean Corpuscular HGB Conc 35 g/dl (31-36); Mean Corpuscular Hemoglobin 31 pg (27-31); Mean Corpuscular Volume 89 fL (80-94); Mean Platelet Volume 7.7 um3 (7.4-10.4); Nucleated Red Blood Cells % 0; Platelet Count 227 10^3/ul (150-450); Red Blood Count 5.21 10^6/ul (4.00-5.40); Red Cell Distribution Width 14 % (10.5-15); White Blood Count 16.1 10^3/ul (3.5-10.8)
[2017-11-10 06:14] LABS: EGFR Non-African American 104.1 (>60)
[2017-11-10] MEDS: hydrALAZINE IV* 20 MG/ML VIAL IV SLOW PU PRN ×3 (07:36→19:30)
[2017-11-10 08:06] LABS: Urine Appearance Clear; Urine Blood Negative (Negative); Urine Color Yellow; Urine Ketones Trace (Negative); Urine Protein Negative (Negative); Urine Specific Gravity 1.018 (1.010-1.030); Urine Urobilinogen Negative (Negative)
[2017-11-10] MEDS: amLODIPine TAB* 5 MG PO SCH (08:12)
[2017-11-10] MEDS: Amoxicillin/Clavulanate TAB* 875 MG PO SCH ×2 (08:12→19:31)
[2017-11-10] MEDS: Insulin LISPRO* 1 UNITS UNIT SUBCUT SCH ×4 (08:12→21:01)
[2017-11-10] MEDS: Aspirin 81 mg CHEW TAB* 81 MG TAB.CHEW PO SCH (09:47)
--- NOTE | 2017-11-10 12:11 | CONS ---
NEUROLOGY CONSULTATION: DATE OF CONSULT: 11/10/17 PRIMARY PROVIDER: DANNIELLE Richards Neurology was consulted by DANNIELLE Richards to evaluate the patient for vertigo and gait imbalance. CHIEF COMPLAINT: "Unsteady on my feet." HISTORY OF PRESENT ILLNESS: Mr. Alfonso Serrano is a pleasant 47-year-old right- handed man who was recently discharged from [facility] after a brief hospitalization for a questionable presyncopal episode. During the hospitalization, the patient was diagnosed with hypertension and new onset diabetes mellitus type 2. He was started on Norvasc, lisinopril, and metformin and was sent home. The patient stated that as soon as he got home, he started developing persistent lightheadedness and dizziness. This started exactly 4 days ago, but seemed to have improved after his blood pressure was under control , but then restarted again when he was discharged 2 days ago. The dizziness was described as a spinning sensation that went away after he sat down. Yesterday, he woke up with severe vertigo associated with nauseated. The symptoms were severe enough where he was barely able to stand. At around 2-3 pm yesterday, the patient was unable to function due to the nausea and vertigo, so he contacted EMS. He denied any focal weakness. He denied any double vision. He denied any hearing loss or tinnitus. He is having pain in the left ear more than the right ear that started yesterday. He has no rash or sick exposure. He has chronic cervicalgia, which has not changed over the last few days. He had a diagnosis of an inner ear infection in May 2017 and he was placed on antibiotics. He had hearing loss in that right ear for approximately 2 months and it was not until July until he actually regained his hearing function. The patient does not take aspirin. Important to add that the patient suffers from morbid obesity but has lost approximately 50 pounds over the last year. PAST MEDICAL HISTORY: 1. Hypertension. 2. Diabetes mellitus type 2. 3. Hernia operation. HOME MEDICATIONS: He was recently again started on: 1. Amlodipine 10 mg daily. 2. Lisinopril 5 mg at night. 3. Metformin 500 mg twice daily. ALLERGIES: No known drug allergies. FAMILY HISTORY: Father suffered from myocardial infarction. There is no history of stroke or seizures. 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 He denied any tobacco or alcohol use. REVIEW OF SYSTEMS: A 14-point review of systems was obtained and otherwise negative except for what was mentioned in the HPI. PHYSICAL EXAM: Vital Signs: Temperature of 98.0, pulse rate of 72, respiratory rate of 18, oxygen saturation 95%, blood pressure 185/81. General: Slight mild ill appearing obese man in no acute distress. He is perseverating when sitting at the edge of the bed. Otherwise, he is very cooperative and pleasant. HEENT: Head is normocephalic without any obvious abnormalities. Eyes: Conjunctival/corneas are clear with no scleral icterus. Neck: Supple and symmetrical with no carotid bruit. He has no nuchal rigidity. He has no evidence of Brudzinski or Kernig sign. Lungs: Clear to auscultation bilaterally with nonlabored breathing. Cardiovascular: There is a holosystolic murmur graded as 3/6 that was radiating to the carotids right more than the left. Otherwise regular rhythm. Normal S1, S2. Extremities: Normal range of motion with no cyanosis. Skin: No skin lesions or lacerations. Psych : Affect is broad and normal mood. Easy to establish rapport. Neurologic: Mental status: Awake, alert, and oriented to person, place, time, and general circumstances. Speech and language including expression, naming, repetition, and comprehension was assessed and found to be normal. Cranial Nerves: Normal confrontation bilaterally. Pupils are mid range and reactive to light. Normal consensual response. Extraocular muscles are intact. There is no ptosis. Sensation is intact on the forehead, cheeks, and jaw region bilaterally. No facial asymmetry was noticed. The patient is able to hear throughout the history process. Tongue is symmetrical and midline with no atrophy. Motor: No abnormal movements. No pronator drift. Normal bulk and tone throughout. No fasciculation. Neck extension is 5. Proximal and distal upper and lower extremities are 5/5. Reflexes right/left brachioradialis 1/1, biceps 1/1, triceps 1/2, patella 1/2, ankle trace/trace plantar flexor bilaterally. Sensation is intact to light touch throughout. Normal vibratory and proprioception at the great toes. Coordination: Normal [id number] and rapid alternating movements. Hint examination is negative bilaterally. Gait and Station: Wide base with ataxia towards the left. He was unable to do tandem gait. DIAGNOSTIC STUDIES/LAB DATA: WBC of 16.1. D-dimer less than 200. Hemoglobin is 16, platelets 227,000. Sodium 139, potassium 4.0, chloride 101, creatinine 0.80, glucose of 175. He recently had an A1c level that was elevated at 7.6. He also had an LDL of 82, HDL of 41 and total cholesterol of 165. CT of head without contrast was obtained on 11/06/17 and on 11/09/17. I personally reviewed both studies. Although the study was reported to be normal , there appears to be a hypodensity in the left cerebellum that seems to be chronic. This change was seen on 11/06/17 as well as 11/09/17. The patient recently had a transthoracic echo completed on 11/06/17 that was abnormal in the sense that the study was limited due to a poor acoustic window. The patient had severe concentric left ventricular hypertrophy. There was normal left ventricular systolic function at 60-65%. There is moderate to severe dilation of the left atrium. The aortic valve structure is not well visualized, but there is mild to moderate aortic stenosis and moderate mitral annular calcification present. ASSESSMENT: 1. Mr. Alfonso Serrano is a pleasant 47-year-old right-handed morbidly obese man with newly diagnosed hypertension and diabetes who presented with a 4-day history of gait imbalance and vertigo. On examination, the patient has signs concerning for stroke involving the brainstem. He seemed ataxic towards the left when ambulating and did not complain of any vertigo. CT of the head does show evidence of an old left bilateral infarction. HINT examination was negative suggesting that this is less likely to be peripheral vertigo related to vestibular dysfunction. Current NIH stroke scale is 0. Risk factors include hypertension, diabetes, morbid obesity, concerning for possible undiagnosed obstructive sleep apnea. 2. Hypertension, diabetes, morbid obesity. 3. Holosystolic murmur with evidence of moderate aortic stenosis on echo - further evaluation is warranted. If the MRI of the brain is positive for stroke , the patient will need transesophageal echocardiogram to look for atrial or ventricular thrombus since the transthoracic echocardiogram was limited due to the patient's body habitus. 4. Leukocytosis and fever in the setting of heart murmur - blood cultures are pending to rule out infective endocarditis. RECOMMENDATIONS: If the MRI is positive for stroke, the patient would be outside the therapeutic window for IV tPA or mechanical thrombectomy. I would recommend neuro checks every 4 hours. MRI of the brain with and without contrast focusing on the internal auditory meautus, MRA of the head as well as MRA of the neck were ordered. The patient is on telemetry. I would start the patient on aspirin 81 mg daily. Blood pressure parameters should be within normal range. Please consult PT. DVT prophylaxis with SCDs, but the patient can be started on heparin subcutaneous injection 5000 units t.i.d. Anticoagulation therapy not indicated at this point and is dependant on the further work-up. TIME SPENT: I spent a total of 75 minutes and greater than 50% of that was spent directly reviewing the medical chart, obtaining history, examining the patient, education and counseling, discussing the treatment plan with the primary team. [id number]/CPS #: [id number] GUZMAN
--- NOTE | 2017-11-10 15:38 | PN ---
Subjective Date of Service: 11/10/17 Interval History: Patient has persistent disequilibrium with movement. No vertigo. Denies CP, SOB , N/V, abdominal pain, diarrhea, constipation, ear pain, F/C, dysuria, cough, or other pain. Family History: Unchanged from Admission Social History: Unchanged from Admission Past Medical History: Unchanged from Admission Objective Active Medications: Acetaminophen (Tylenol Tab*) 975 mg PO Q6H PRN PRN Reason: FEVER/PAIN Last Admin: 11/10/17 14:56 Dose: 975 mg Al Hydrox/Mg Hydrox/Simethicone (Maalox Plus*) 30 ml PO Q6H PRN PRN Reason: INDIGESTION Albuterol (Ventolin 2.5 Mg/3 Ml Neb.Treva*) 2.5 mg INH RT.[id number] AWAKE PRN PRN Reason: sob/wheezing Amlodipine Besylate (Norvasc Tab*) 10 mg PO DAILY [facility] Last Admin: 11/10/17 08:12 Dose: 10 mg Amoxicillin/Clavulanate Potassium (Augmentin Tab*) 875 mg PO BID [facility] Last Admin: 11/10/17 08:12 Dose: 875 mg Aspirin (Aspirin 81 Mg Chew Tab*) 81 mg PO DAILY [facility] Last Admin: 11/10/17 09:47 Dose: 81 mg Dextrose (D50w Syringe 50 Ml*) 12.5 gm IV PUSH .FOR FS < 60 - SS PRN PRN Reason: FS < 60 Heparin Sodium (Porcine) (Heparin Vial(*)) 5,000 units SUBCUT Q8HR [facility] Hydralazine HCl (Apresoline Iv*) 10 mg IV SLOW PU Q4H PRN PRN Reason: SYSTOLIC BP GREATER THAN: Last Admin: 11/10/17 12:28 Dose: 10 mg Insulin Human Lispro (Humalog*) 0 units SUBCUT ACHS [facility]; Protocol Last Admin: 11/10/17 12:09 Dose: 6 units Lisinopril (Prinivil Tab*) 10 mg PO QPM [facility] Magnesium Hydroxide (Milk Of Magnesia Liq*) 30 ml PO Q4H PRN PRN Reason: CONSTIPATION Meclizine HCl (Antivert Tab*) 25 mg PO Q8HR PRN PRN Reason: DIZZINESS Ondansetron HCl (Zofran Inj*) 4 mg IV Q4H PRN PRN Reason: NAUSEA/VOMITING Vital Signs - 8 hr 11/10/17 11/10/17 11/10/17 07:30 09:23 12:26 Temperature 98.0 F 98.4 F Pulse Rate 72 83 67 Respiratory 18 20 Rate Blood Pressure 185/81 179/75 177/77 (mmHg) O2 Sat by Pulse 95 94 Oximetry Oxygen Devices in Use Now: None Appearance: Patient is a 47yo male who appears stated age and is sitting in the bed in NAD. Eyes: No Scleral Icterus, PERRLA Ears/Nose/Mouth/Throat: NL Teeth, Lips, Gums, Clear Oropharnyx, Mucous Membranes Moist, - - Large tonsils. Erythema of auricular canals without open areas, normal TMs. Neck: NL Appearance and Movements; NL JVP, Trachea Midline Respiratory: Symmetrical Chest Expansion and Respiratory Effort, Clear to Auscultation Cardiovascular: NL Sounds; No Murmurs; No JVD, RRR, No Edema Abdominal: NL Sounds; No Tenderness; No Distention, No Hepatosplenomegaly Lymphatic: No Cervical Adenopathy Extremities: No Edema, No Clubbing, Cyanosis Skin: No Rash or Ulcers, No Nodules or Sclerosis Neurological: Alert and Oriented x 3, NL Sensation, NL Muscle Strength and Tone , - - Falling to left with walking. Result Diagrams: 11/10/17 05:25 11/10/17 05:25 Assess/Plan/Problems-Billing Assessment: Patient is a 47yo male with a PMH for HTN, DM, Obesity who is here with N/V with dizziness and has concern for new cerebellar CVA. - Patient Problems (1) Dizziness Current Visit: No Status: Acute Code(s): R42 - DIZZINESS AND GIDDINESS SNOMED Code(s): 174256356 Comment: Appreciate neurological consult. Disequilibrium with falling to left. Concern for Cerebellar CVA on CT. MRI pending. Improved. Meclizine PRN. On ASA for primary prevention. Statin pending results of MRI. Possible YASSINE if new CVA on MRI. (2) Hypertension Current Visit: Yes Status: Acute Code(s): I10 - ESSENTIAL (PRIMARY) HYPERTENSION SNOMED Code(s): 97178325 Comment: Poorly controlled. Amlodipine and Lisinopril increased. PRN Hydralzaine. (3) Concentric left ventricular hypertrophy Current Visit: No Status: Acute Code(s): I51.7 - CARDIOMEGALY SNOMED Code( s): 22094011 Comment: Likely due to longstanding HTN. Monitor for Fluid overload. (4) Diabetes Current Visit: No Status: Acute Code(s): E11.9 - TYPE 2 DIABETES MELLITUS WITHOUT COMPLICATIONS SNOMED Code(s): 33532853 Comment: Hemoglobin A1c 7.4 SSI in hospital, Metformin at discharge. (5) Obesity Current Visit: No Status: Acute Code(s): E66.9 - OBESITY, UNSPECIFIED SNOMED Code(s): 136390512 Comment: Recent intentional weight loss of 50 pounds. Continue lifestyle modification. (6) DVT prophylaxis Current Visit: Yes Status: Acute Code(s): KLI8362 - SNOMED Code(s): 551542555 Comment: Heparin SubQ and SCDs (7) Full code status Current Visit: Yes Status: Acute Code(s): Z78.9 - OTHER SPECIFIED HEALTH STATUS SNOMED Code(s): 128192269 Status and Disposition: Inpatient.
--- NOTE | 2017-11-10 16:17 | CONSULT ---
Consult Consult: ADDENDUM TO CONSULT NOTE: MRI brain without contrast shows evidence of large right cerebellar stroke involving the posterior inferior cerebellar artery. The etiology is unclear but there is concern for possible cardioembolic source given the dilated left atrium and aortic stenosis. Other mechanisms include atherosclerotic disease in the setting of multiple risk factors. Recommendations: - Continue aspirin 81 mg daily - Started atorvastatin 80 mg nightly - Ordered CTA head and neck to evaluate for basilar stenosis or atherosclerotic disease in the posterior circulation - He is outside the window for IV tPA or mechanical thrombectomy since his last known well was Monday November 06, 2017. - He will need a YASSINE to evaluate for atrial or ventricular thrombus or vegetation (systolic murmur + fever + leukocytosis). - Depending on the results, he may need a loop recorder - Continue telemetry - Ordered TAX COLLECTOR and PT to evaluate and treat. Please preform a bedside swallow evaluation as the patient is at risk for silent aspiration. - BP goals: normotensive. He has past the peak for cerebral swelling (>72 hours ) - Neuro checks every 4 hours - Secondary stroke prevention and education was done today. Controlling BP, blood glucose, and losing weight will prevent another stroke. Dr. Serna will be covering the neurology service starting tomorrow. Please contact us for any questions or concerns. I personally discussed the above results with Erica and Keo. I reviewed the brain MRI with Mr. Serrano.
--- NOTE | 2017-11-10 17:05 | RAD ---
Indication: Left cerebellar stroke. Sagittal and axial T1, axial T2, FLAIR, diffusion, coronal and axial fat-suppressed T1-weighted images were obtained. Ventricular structures are midline. No midline shift is noted. There is right-sided cerebellar restriction of diffusion consistent with right-sided cerebellar stroke. Stroke appears to be a posterior inferior cerebellar artery territory. No definite mass effect on the fourth ventricle is noted. The left cerebellar hemisphere is unremarkable. Ventricular structures are midline. No midline shift is noted. The extra-axial spaces are unremarkable. The cerebellopontine angle demonstrates no focal masses. The vestibular cochlear nerve complexes are grossly unremarkable best identified on the heavily T2-weighted images. No other areas of signal abnormality are noted. The remainder of the FLAIR images are otherwise unremarkable. IMPRESSION: Findings consistent with a right posterior inferior cerebellar artery infarct. Minimal mass effect in the fourth ventricle. The cerebellopontine vestibulocochlear nerve complexes are unremarkable.
[2017-11-10] MEDS ORDERED: Iodixanol* (CONTRAST) 320 MG/ML 100 ML SDV IV ONE (17:34)
[2017-11-10] MEDS ORDERED: Lisinopril TAB* 5 MG PO SCH ×2 (18:00)
--- NOTE | 2017-11-10 19:03 | RAD ---
INDICATION: RIGHT cerebellar stroke. RIGHT posterior inferior cerebellar artery distribution. COMPARISON: November 10, 2017 MRI. TECHNIQUE: Multidetector CT images were obtained from the aortic arch to the vertex of the head with 100 mL Visipaque 320 IV contrast. Arterial phase of enhancement. Multiplanar reformation including maximum intensity projection. 3-D arterial volume rendering. Stenosis estimations based on denominator of distal arterial diameter. NECK ANGIOGRAM REPORT: Large body habitus and suboptimal opacification of the arteries limits assessment. Normal configuration of the branch vessels at the aortic arch. No suggestion of ostial stenosis. No atherosclerotic plaque or carotid stenosis evident on the RIGHT or LEFT. Negative for carotid dissection. Patent grossly codominant vertebral arteries with both contributing to the basilar artery. No aneurysm evident at the posterior inferior artery origins. Assessment of the posterior inferior cerebellar artery origins is limited due to small size without gross abnormality. NECK ANGIOGRAM IMPRESSION: No evidence for carotid or vertebral artery stenosis or occlusion. HEAD ANGIOGRAM REPORT: Suboptimal arterial opacification limits assessment. Unremarkable intracranial internal carotid arteries as well as the M1 and M2 segments of the middle cerebral arteries and A1 and A2 segments of the anterior cerebral arteries. Suggestion of a patent anterior communicating artery. Unremarkable basilar artery and cerebellar artery origins. Patent posterior cerebral arteries are supplied primarily by the posterior circulation with normal variant hypoplastic posterior communicating arteries. No intracranial aneurysms or vascular malformations evident. HEAD ANGIOGRAM IMPRESSION: #. Suboptimal arterial opacification with contrast limits assessment. #. Negative for large vessel intracranial arterial occlusion or compelling evidence for hemodynamic significant stenosis. CPT II: CPT II Codes: 3100F
[2017-11-10] MEDS ORDERED: Atorvastatin* 80 MG TAB PO ONE (21:00)
[2017-11-10] MEDS: Heparin VIAL(*) 5000 UNITS/ML VIAL (FIVE THOUSAND) SUBCUT SCH (21:02)
--- NOTE | 2017-11-10 23:59 | PN ---
Progress Note - Progress Note Date of Service: 11/10/17 Note: 47M w/ cerebellar CVA & uncontrolled HTN w/ recommendation for normotension per neurology remains uncontrolled with systolics in the 170-180s on 10mg PO lisinopril & 10mg PO amlodipine. Will transfer to the unit for more aggressive BP management via nicardipine GTT with plan to taper back to PO once better control is obtained.
[2017-11-11] MEDS ORDERED: niCARdipine 0.1MG/ML IVPREMIX* 20 MG/200 ML BAG ONE (00:52)
[2017-11-11] MEDS: niCARdipine 0.1MG/ML IVPREMIX* 20 MG/200 ML BAG IV SCH ×7 (01:02→21:50)
[2017-11-11] MEDS ORDERED: hydrALAZINE IV* 20 MG/ML VIAL ONE (01:05)
[2017-11-11] MEDS: hydrALAZINE IV* 20 MG/ML VIAL IV SLOW PU PRN ×2 (01:06→18:05)
[2017-11-11] MEDS ORDERED: Metoprolol Tartrate IV* 1 MG/ML 5 ML VIAL ONE ×2 (03:18→20:22)
[2017-11-11] MEDS: Heparin VIAL(*) 5000 UNITS/ML VIAL (FIVE THOUSAND) SUBCUT SCH ×3 (06:18→21:45)
[2017-11-11] MEDS: Aspirin 81 mg CHEW TAB* 81 MG TAB.CHEW PO SCH (08:46)
[2017-11-11] MEDS: Amoxicillin/Clavulanate TAB* 875 MG PO SCH (08:46)
[2017-11-11] MEDS: amLODIPine TAB* 5 MG PO SCH (08:46)
[2017-11-11] MEDS: Insulin LISPRO* 1 UNITS UNIT SUBCUT SCH ×4 (08:46→21:45)
[2017-11-11] MEDS: Acetaminophen TAB* 325 MG PO PRN ×2 (08:47→21:51)
--- NOTE | 2017-11-11 08:59 | PN ---
Subjective Date of Service: 11/11/17 Interval History: Pt transferred to ICU last night for hypertension placed on a Nicardapine gtt, better control this am. Patient offers no complaints this am and states he slept for the first time in days last night. Denies any dizziness or GAXIOLA. No weakness. Overall reports he feels "good". Pt is very motivated to continue with lifestyle changes Family History: Unchanged from Admission Social History: Unchanged from Admission Past Medical History: Unchanged from Admission Objective Active Medications: Acetaminophen (Tylenol Tab*) 975 mg PO Q6H PRN PRN Reason: FEVER/PAIN Last Admin: 11/10/17 21:04 Dose: 975 mg Al Hydrox/Mg Hydrox/Simethicone (Maalox Plus*) 30 ml PO Q6H PRN PRN Reason: INDIGESTION Albuterol (Ventolin 2.5 Mg/3 Ml Neb.Treva*) 2.5 mg INH RT.[id number]-DAALB AWAKE PRN PRN Reason: sob/wheezing Amlodipine Besylate (Norvasc Tab*) 10 mg PO DAILY [facility] Last Admin: 11/11/17 08:46 Dose: 10 mg Amoxicillin/Clavulanate Potassium (Augmentin Tab*) 875 mg PO BID [facility] Last Admin: 11/11/17 08:46 Dose: 875 mg Aspirin (Aspirin 81 Mg Chew Tab*) 81 mg PO DAILY [facility] Last Admin: 11/11/17 08:46 Dose: 81 mg Dextrose (D50w Syringe 50 Ml*) 12.5 gm IV PUSH .FOR FS < 60 - SS PRN PRN Reason: FS < 60 Heparin Sodium (Porcine) (Heparin Vial(*)) 5,000 units SUBCUT Q8HR [facility] Last Admin: 11/11/17 06:18 Dose: 5,000 units Hydralazine HCl (Apresoline Iv*) 10 mg IV SLOW PU Q4H PRN PRN Reason: SYSTOLIC BP GREATER THAN: Last Admin: 11/11/17 01:06 Dose: 10 mg Nicardipine/Sodium Chloride (Cardene 0.1mg/Ml Ivpremix*) 20 mg in 200 mls @ 50 mls/hr IV .(as Initial Rate) [facility] Last Admin: 11/11/17 08:05 Dose: 100 mls/hr Insulin Human Lispro (Humalog*) 0 units SUBCUT ACHS [facility]; Protocol Last Admin: 11/11/17 08:46 Dose: 3 units Lisinopril (Prinivil Tab*) 10 mg PO QPM [facility] Last Admin: 11/10/17 17:02 Dose: 10 mg Magnesium Hydroxide (Milk Of Magnesia Liq*) 30 ml PO Q4H PRN PRN Reason: CONSTIPATION Meclizine HCl (Antivert Tab*) 25 mg PO Q8HR PRN PRN Reason: DIZZINESS Ondansetron HCl (Zofran Inj*) 4 mg IV Q4H PRN PRN Reason: NAUSEA/VOMITING Vital Signs - 8 hr 11/11/17 11/11/17 11/11/17 07:00 07:01 07:16 Temperature Pulse Rate 62 68 61 Respiratory 19 9 22 Rate Blood Pressure 141/70 139/71 (mmHg) O2 Sat by Pulse 92 94 92 Oximetry 11/11/17 11/11/17 11/11/17 07:31 07:46 08:00 Temperature 99.3 F Pulse Rate 66 67 62 Respiratory 26 19 22 Rate Blood Pressure 138/67 142/67 (mmHg) O2 Sat by Pulse 93 93 92 Oximetry 11/11/17 11/11/17 08:01 08:58 Temperature Pulse Rate 62 Respiratory 21 20 Rate Blood Pressure 138/69 (mmHg) O2 Sat by Pulse 93 Oximetry Oxygen Devices in Use Now: None Appearance: 47 yo obese male A+O x3 in NAD Eyes: No Scleral Icterus, PERRLA Ears/Nose/Mouth/Throat: NL Teeth, Lips, Gums, Mucous Membranes Moist Neck: NL Appearance and Movements; NL JVP Respiratory: Symmetrical Chest Expansion and Respiratory Effort, Clear to Auscultation Cardiovascular: RRR, No Edema, - - S1S2 systolic murmur noted Abdominal: NL Sounds; No Tenderness; No Distention, - - obese Extremities: No Edema, No Clubbing, Cyanosis Skin: No Rash or Ulcers, No Nodules or Sclerosis Neurological: Alert and Oriented x 3, NL Sensation, NL Muscle Strength and Tone , - - noted noted deficits Lines/Tubes/Other Access: Clean, Dry and Intact Peripheral IV Nutrition: Taking PO's Result Diagrams: 11/11/17 09:50 11/11/17 09:50 Microbiology and Other Data: Microbiology 11/11/17 03:00 Nasal Screen MRSA (PCR) - Final Nasal Mrsa Not Detected 11/09/17 21:28 Aerobic Blood Culture - Preliminary Blood Venous No Growth Day 1 Anaerobic Blood Culture - Preliminary No Growth Day 1 Assess/Plan/Problems-Billing Assessment: Patient is a 47yo male with a PMH for HTN, DM, Obesity who is here with N/V with dizziness and has concern for new cerebellar CVA. - Patient Problems (1) CVA (cerebral vascular accident) Comment: Appreciate neurological consult. concern for cardioembolic MRI - Right posterior inferior Cerebellar infarct, minimal mass effect in 4th ventricle CTA Head/Neck - negative for large vessel intracranial arterial occlusion or stenosis Continue ASA, statin Continue Tele monitoring Will need YASSINE in the setting of murmur, leukocytosis, fever - Blood cx NTD. Will schedule for Monday. HTN - patient transferred to ICU last night for blood pressures of SBP 180-190s/ 90 that were resistant to IV hydralazine, started on a Nicardapine gtt - now with normotensive BPs. Attempting to wean gtt Continue norvasc 10 mg and Lisinopril - may need to go up on lisinopril dosing (2) Dizziness Comment: resolved (3) Hypertension Comment: Plan to wean from Nicardipine gtt ... Better control this am. Continue Amlodipine and Lisinopril - may need to increase lisinopril dose. PRN Hydralzaine. (4) Vitamin D deficiency Comment: - new - Vitamin D level 14 - start supplementation, will need to continue on discharge (5) Diabetes Comment: Hemoglobin A1c 7.4 lispro SSI in hospital, Metformin at discharge. Motivated to continue lifestyle changes (6) Obesity Comment: Recent intentional weight loss. Continue lifestyle modification. (7) DVT prophylaxis Comment: Heparin SubQ and SCDs (8) Full code status Status and Disposition: Inpatient. Home when medically stable
[2017-11-11 10:27] LABS: ABS Basophils 0.1 10^3/ul (0-0.2); ABS Eosinophils 0 10^3/ul (0-0.6); ABS Lymphocytes 2.7 10^3/ul (1.0-4.8); ABS Neutrophils 12.4 10^3/ul (1.5-7.7); ABS Nucleated RBC 0 10^3/ul; Eosinophil % 0.1 % (0-6); Hematocrit 49 % (42-52); Hemoglobin 16.8 g/dl (14.0-18.0); Lymphocyte % 16.7 % (25-47); Mean Corpuscular HGB Conc 34 g/dl (31-36); Mean Corpuscular Hemoglobin 31 pg (27-31); Mean Corpuscular Volume 90 fL (80-94); Mean Platelet Volume 8.1 um3 (7.4-10.4); Nucleated Red Blood Cells % 0.1; Platelet Count 248 10^3/ul (150-450); Red Blood Count 5.48 10^6/ul (4.00-5.40); Red Cell Distribution Width 14 % (10.5-15); White Blood Count 16.1 10^3/ul (3.5-10.8)
[2017-11-11 10:38] LABS: EGFR Non-African American 101.1 (>60)
[2017-11-11] MEDS ORDERED: Cholecalciferol TAB* 1000 UNITS PO ONE (13:20)
--- NOTE | 2017-11-11 13:38 | CONS ---
NEUROLOGY CONSULTATION FOLLOWUP: DATE OF CONSULT: 11/11/17 HOSPITALIST: Cheryl Ruff NP LOCATION: He is in inpatient ICU Bed A. CHIEF COMPLAINT: Cerebellar stroke. INTERVAL HISTORY: Since yesterday, Mr. Serrano was transferred to the ICU because of uncontrolled hy pertension. He has had headaches at that time with it. Today, he feels well and no longer has heada ange. His blood pressure was brought down with nicardipine. He denies any nausea, dizziness, or prob lems with his vision today. MEDICATIONS: Are reviewed and he is on: 1. Aspirin 81 mg p.o. daily. 2. Nicardipine drip. 3. Zofran 4 mg IV q.4 hours as needed for nausea. 4. Lisinopril 10 mg p.o. daily. 5. Heparin 5000 units subcu q.8. 6. Insulin sliding scale. He was on atorvastatin, but he only got one dose and it was discontinued. PHYSICAL EXAM: On exam, he is obese. Temperature 98.8 temporally, blood pressure most recently 130/ 62, heart rate in the 50s, respiratory rate 22 and oxygen saturation is 94%. Heart is in a regular r hythm with a grade 3/6 early systolic murmur loudest at the right upper sternal border. Carotid puls es are heard in the field, but there are no bruits. Neck is supple. Neurological Exam: Pupils react equally from 3 to 2 mm. Eye movements are full and there is no nyst agmus. Facial musculatures are symmetric. Palate and tongue are normal and there is no dysarthria. He has normal strength in the upper extremities. Civghr-gt-vrar maneuver is normal bilaterally. Fi nger taps are normal bilaterally. He is alert and oriented. He is a good historian with intact reina ry and fluent language. DIAGNOSTIC STUDIES/LAB DATA: From today includes a white blood cell count remaining stable at 16.1, hemoglobin and platelet count are normal. Chemistries today notable for a point of care glucose at 2 46, vitamin D level low at 14.1. TSH is normal at 0.62 and free T4 borderline elevated at 1.17. Juliette ctrolytes are unremarkable. His neuro imaging including CT angiogram, which was suboptimal is reviewed. His MRI of the brain rev eals acute right cerebellar infarction. IMPRESSION AND PLAN: Impression is that of a right cerebellar infarction with multiple vascular risk factors. He needs a transesophageal echocardiogram to look for evidence of an embolic source. Curr ently, I agree with aspirin therapy unless a cardioembolic source is found. I think he should remain on high-dose statin unless he had some type of reaction to it. Currently, his blood pressure is kahlil quate and I would be careful not to try to drop it too low. He seems to be doing very well clinicall y at the moment. He may need a loop recorder as an outpatient if nothing is found during this hospit alization in regards to her cardioembolic source. I will continue to follow him along with you. [id number]/[facility] #: [id number]
[2017-11-11] MEDS ORDERED: Lisinopril TAB* 10 MG PO ONE ×2 (13:39→18:55)
[2017-11-11] MEDS: Atorvastatin* 80 MG TAB PO SCH (17:32)
[2017-11-12] MEDS: niCARdipine 0.1MG/ML IVPREMIX* 20 MG/200 ML BAG IV SCH ×12 (00:42→21:05)
[2017-11-12 06:45] LABS: EGFR Non-African American 99.7 (>60)
[2017-11-12 08:09] LABS: ABS Basophils 0 10^3/ul (0-0.2); ABS Eosinophils 0 10^3/ul (0-0.6); ABS Lymphocytes 2.6 10^3/ul (1.0-4.8); ABS Monocytes 1.1 10^3/ul (0-0.8); ABS Neutrophils 10.6 10^3/ul (1.5-7.7); ABS Nucleated RBC 0.1 10^3/ul; Eosinophil % 0.2 % (0-6); Hematocrit 50 % (42-52); Lymphocyte % 18.4 % (25-47); Mean Corpuscular HGB Conc 34 g/dl (31-36); Mean Corpuscular Hemoglobin 31 pg (27-31); Mean Corpuscular Volume 90 fL (80-94); Mean Platelet Volume 8.2 um3 (7.4-10.4); Nucleated Red Blood Cells % 0.6; Platelet Count 250 10^3/ul (150-450); Red Blood Count 5.52 10^6/ul (4.00-5.40); Red Cell Distribution Width 15 % (10.5-15); White Blood Count 14.4 10^3/ul (3.5-10.8)
[2017-11-12] MEDS: Heparin VIAL(*) 5000 UNITS/ML VIAL (FIVE THOUSAND) SUBCUT SCH ×3 (08:33→21:04)
--- NOTE | 2017-11-12 08:34 | RAD ---
Indication: Evaluate for hydrocephalus CT of the brain was performed without IV contrast. Ventricular structures are midline. No midline shift is noted. The extra-axial spaces are unremarkable. There is no evidence of intracranial mass or hemorrhage. Mastoid air cells and paranasal sinuses are otherwise unremarkable. There is a hypodensity in the right cerebellum. This is unchanged from previous exam. This is consistent with a developing infarct identified on November 10, 2017. IMPRESSION: No hemorrhage is noted. No hydrocephalus is noted. There is development of hypodensity in the right posterior inferior cerebellum consistent with evolving infarct.
[2017-11-12] MEDS: Cholecalciferol TAB* 1000 UNITS PO SCH (08:53)
[2017-11-12] MEDS: Lisinopril TAB* 10 MG PO SCH (08:53)
[2017-11-12] MEDS: amLODIPine TAB* 5 MG PO SCH (08:53)
[2017-11-12] MEDS: Aspirin 81 mg CHEW TAB* 81 MG TAB.CHEW PO SCH (08:53)
[2017-11-12] MEDS: Insulin LISPRO* 1 UNITS UNIT SUBCUT SCH ×4 (08:55→21:04)
[2017-11-12] MEDS: Clopidogrel TAB* 75 MG PO SCH (10:51)
--- NOTE | 2017-11-12 12:08 | CONS ---
NEUROLOGY FOLLOWUP NOTE: DATE OF CONSULT: 11/12/17 HOSPITALIST: Dr. Cheng. CHIEF COMPLAINT: Cerebellar stroke. INTERVAL HISTORY: Since yesterday, Alfonso woke up at about 4 in the morning with some headache and double vision and nausea. He went back to sleep and when he woke up at about [address] Cheng evaluated Alfonso and I spoke to him on the phone at about 7 a.m. We agreed on a brain CT, which was done without contrast a little after that shows an evolving right cerebellar infarction but no hydrocephalus, hemorrhage, or any evidence of new infarction. Currently at 10 a.m., he feels better. He does not have a headache, double vision, or nausea right now. In reviewing his vital signs, he has not had any significant drops or escalations in blood pressure through the night. MEDICATIONS: Reviewed and he remains on: 1. Aspirin 81 mg p.o. daily. 2. Meclizine 25 mg p.o. q. 8 hours as needed for dizziness. 3. Nicardipine drip. 4. Zofran 4 mg IV q. 4 hours p.r.n. nausea. 5. Lisinopril 20 mg p.o. daily. 6. Sliding scale insulin. 7. Heparin subcutaneous 5000 units q. 8 hours. 8. Vitamin D 2000 units p.o. daily. 9. Atorvastatin 80 mg p.o. daily. 10. Amlodipine 10 mg p.o. daily. PHYSICAL EXAM: He is lying in his ICU bed. He is awake and alert. Most recent blood pressure 147/76, heart rate running around 60, respiratory rate 15 , and oxygen saturations 94%. Last temperature recorded is 98.2 temporally. On neurological exam, there is no ptosis. Pupils react equally from to 2.5 down to 2 mm. Eye movements are full and there is no evidence of ophthalmoplegia and he does not experience diplopia. There may be a few beats of nystagmus in right gaze but it is not sustained. Facial musculature is symmetric. Palate and tongue appear normal, tongue protrudes in the midline, speech is clear without dysarthria. Facial sensation to light touch is intact and symmetric. Sensation to light touch in the limbs is likewise symmetric. He has normal strength in the upper and lower extremities. Hirzgr-fd-bvvq maneuver and finger taps are normal and symmetrical in both hands. Heel-to- brannon maneuver is a little bit clumsy with the right leg but not unduly so. He has normal ceqj-kq-gwoe on the left. Alternating finger movements in the hands are symmetrical. He is alert and oriented with intact memory and fluent language. LABORATORY DATA: From today notable for chemistry profile with a glucose of 171. Potassium was not able to be calculated. CBC from this morning reveals an elevated white blood cell count of 14.4, which is down from 16.1 yesterday. IMPRESSION: Impression is that of a cerebellar stroke with some fluctuating symptoms. He does not appear to be having any significant fluctuations in his blood pressure and there is no evidence of hydrocephalus. I recommended adding Plavix to aspirin at this point. His transesophageal echocardiogram has been ordered and is still pending. I reviewed his CT angiogram again and his vertebrobasilar systems seems to be intact throughout its course. His body habitus is at risk for sleep apnea and might be worth doing at least an overnight continuous oximetry study on him. I will speak with Dr. Salazar again about that. I will continue to follow along with the hospitalist staff. [id number]/[facility] #: [id number] [facility] HOSPITALLetty
[2017-11-12] MEDS: Atorvastatin* 80 MG TAB PO SCH (16:55)
--- NOTE | 2017-11-12 17:21 | PN ---
Subjective Date of Service: 11/12/17 Interval History: Pt seen and examined. Meds and labs reviewed. ROS: Complains of intermittent dizziness with and without vertigo. Denied GAXIOLA, F/C, N/V, CP, SOB, increased cough, sputum production, abd pain, diarrhea, constipation, dysuria, myalgias, arthralgias, throat pain, and new skin lesions. The rest of the 14 point ROS are unremarkable. PHYSICAL EXAM: GEN APPEARANCE: Awake, not in acute distress HEENT: NC/AT, PERRLA, moist oral mucosa, (-) throat erythema NECK: Soft, supple, (-) cervical LAD, (-)JVD HEART: S1S2 2/6 murmur, RRR, No MRG CHEST: CTA, BL, GAE, No W/R/R ABD: Soft, ND/NT, NABS 4x Q EXT: No C/C/E SKIN: Warm to touch PSYCH: No active psychosis, hallucinations, depression, SI/HI Family History: Unchanged from Admission Social History: Unchanged from Admission Past Medical History: Unchanged from Admission Objective Active Medications: Acetaminophen (Tylenol Tab*) 975 mg PO Q6H PRN PRN Reason: FEVER/PAIN Last Admin: 11/11/17 21:51 Dose: 975 mg Al Hydrox/Mg Hydrox/Simethicone (Maalox Plus*) 30 ml PO Q6H PRN PRN Reason: INDIGESTION Albuterol (Ventolin 2.5 Mg/3 Ml Neb.Treva*) 2.5 mg INH [id number] AWAKE PRN PRN Reason: sob/wheezing Amlodipine Besylate (Norvasc Tab*) 10 mg PO DAILY [facility] Last Admin: 11/12/17 08:53 Dose: 10 mg Aspirin (Aspirin 81 Mg Chew Tab*) 81 mg PO DAILY [facility] Last Admin: 11/12/17 08:53 Dose: 81 mg Atorvastatin Calcium (Lipitor*) 80 mg PO 1700 [facility] Last Admin: 11/12/17 16:55 Dose: 80 mg Cholecalciferol (Vitamin D Tab*) 2,000 units PO DAILY [facility] Last Admin: 11/12/17 08:53 Dose: 2,000 units Clopidogrel Bisulfate (Plavix Tab*) 75 mg PO DAILY [facility] Last Admin: 11/12/17 10:51 Dose: 75 mg Dextrose (D50w Syringe 50 Ml*) 12.5 gm IV PUSH .FOR FS < 60 - SS PRN PRN Reason: FS < 60 Heparin Sodium (Porcine) (Heparin Vial(*)) 5,000 units SUBCUT Q8HR [facility] Last Admin: 11/12/17 13:44 Dose: 5,000 units Hydralazine HCl (Apresoline Iv*) 10 mg IV SLOW PU Q4H PRN PRN Reason: SYSTOLIC BP GREATER THAN: Last Admin: 11/11/17 18:05 Dose: 10 mg Nicardipine/Sodium Chloride (Cardene 0.1mg/Ml Ivpremix*) 20 mg in 200 mls @ 50 mls/hr IV .(as Initial Rate) [facility] Last Admin: 11/12/17 17:02 Dose: 125 mls/hr Insulin Human Lispro (Humalog*) 0 units SUBCUT ACHS [facility]; Protocol Last Admin: 11/12/17 16:55 Dose: 6 units Lisinopril (Prinivil Tab*) 20 mg PO DAILY [facility] Last Admin: 11/12/17 08:53 Dose: 20 mg Magnesium Hydroxide (Milk Of Magnesia Liq*) 30 ml PO Q4H PRN PRN Reason: CONSTIPATION Meclizine HCl (Antivert Tab*) 25 mg PO Q8HR PRN PRN Reason: DIZZINESS Last Admin: 11/12/17 11:39 Dose: 25 mg Ondansetron HCl (Zofran Inj*) 4 mg IV Q4H PRN PRN Reason: NAUSEA/VOMITING Vital Signs - 8 hr 11/12/17 11/12/17 11/12/17 09:31 09:46 10:00 Pulse Rate 61 60 57 Respiratory 20 25 23 Rate Blood Pressure 141/67 130/56 (mmHg) O2 Sat by Pulse 90 89 88 Oximetry 11/12/17 11/12/17 11/12/17 10:01 10:16 10:31 Pulse Rate 62 66 60 Respiratory 23 18 Rate Blood Pressure 138/59 142/60 118/66 (mmHg) O2 Sat by Pulse 92 93 89 Oximetry 11/12/17 11/12/17 11/12/17 10:46 10:58 11:00 Pulse Rate 63 64 Respiratory 10 23 21 Rate Blood Pressure 132/67 (mmHg) O2 Sat by Pulse 91 96 Oximetry 11/12/17 11/12/17 11/12/17 11:01 11:16 11:31 Pulse Rate 64 62 61 Respiratory 17 28 22 Rate Blood Pressure 159/70 138/64 154/58 (mmHg) O2 Sat by Pulse 94 93 92 Oximetry 11/12/17 11/12/17 11/12/17 11:46 12:00 12:01 Pulse Rate 61 60 59 Respiratory 21 21 20 Rate Blood Pressure 143/64 134/62 (mmHg) O2 Sat by Pulse 93 94 93 Oximetry 11/12/17 11/12/17 11/12/17 12:16 12:31 12:46 Pulse Rate 60 59 59 Respiratory 23 28 25 Rate Blood Pressure 133/47 130/55 121/54 (mmHg) O2 Sat by Pulse 92 91 92 Oximetry 11/12/17 11/12/17 11/12/17 13:00 13:01 13:16 Pulse Rate 55 63 61 Respiratory 20 20 24 Rate Blood Pressure 134/60 130/67 (mmHg) O2 Sat by Pulse 92 90 90 Oximetry 11/12/17 11/12/17 11/12/17 13:31 13:46 14:00 Pulse Rate 62 58 73 Respiratory 27 26 14 Rate Blood Pressure 121/58 136/62 (mmHg) O2 Sat by Pulse 92 95 96 Oximetry 11/12/17 11/12/17 11/12/17 14:01 14:16 14:31 Pulse Rate 69 59 57 Respiratory 22 27 24 Rate Blood Pressure 146/67 132/55 124/54 (mmHg) O2 Sat by Pulse 93 93 91 Oximetry 11/12/17 11/12/17 11/12/17 14:46 15:00 15:01 Pulse Rate 59 55 52 Respiratory 26 20 23 Rate Blood Pressure 133/53 131/58 (mmHg) O2 Sat by Pulse 94 93 95 Oximetry 11/12/17 11/12/17 11/12/17 15:16 15:31 15:46 Pulse Rate 56 70 57 Respiratory 20 13 23 Rate Blood Pressure 119/61 126/57 124/55 (mmHg) O2 Sat by Pulse 93 96 93 Oximetry 11/12/17 11/12/17 11/12/17 16:00 16:01 16:16 Pulse Rate 58 57 57 Respiratory 24 24 22 Rate Blood Pressure 122/50 134/50 (mmHg) O2 Sat by Pulse 93 93 94 Oximetry 11/12/17 11/12/17 11/12/17 16:31 16:46 16:58 Pulse Rate 57 60 Respiratory 23 31 31 Rate Blood Pressure 125/55 123/53 (mmHg) O2 Sat by Pulse 89 92 Oximetry Oxygen Devices in Use Now: Nasal Cannula Result Diagrams: 11/12/17 06:05 11/12/17 06:05 Microbiology and Other Data: Microbiology 11/11/17 03:00 Nasal Screen MRSA (PCR) - Final Nasal Mrsa Not Detected 11/09/17 21:28 Aerobic Blood Culture - Preliminary Blood Venous No Growth Day 1 Anaerobic Blood Culture - Preliminary No Growth Day 1 Assess/Plan/Problems-Billing Assessment: Patient is a 47yo male with a PMH for HTN, DM, Obesity who is here with N/V with dizziness and has concern for new cerebellar CVA. - Patient Problems (1) CVA (cerebral vascular accident) Current Visit: Yes Status: Acute Code(s): I63.9 - CEREBRAL INFARCTION, UNSPECIFIED SNOMED Code(s): 846431529 Comment: -Appreciate neurological consult. concern for cardioembolic origin (leukocytosis , fever, and murmur) -MRI - Right PICA infarct, minimal mass effect in 4th ventricle -CTA Head/Neck - negative for large vessel intracranial arterial occlusion or stenosis -Continue ASA, statin -Continue Tele monitoring -YASSINE scheduled in the setting of murmur, leukocytosis, fever - Blood cx NTD. Will schedule for Monday. -Discussed repeat CT of head with Dr. Serna, although read as evolving, no significant change or bleed -Plavix added to his regimen given intermittent dizziness +/- vertigo -No documented wide fluctuations of BP (2) Dizziness Current Visit: Yes Status: Acute Code(s): R42 - DIZZINESS AND GIDDINESS SNOMED Code(s): 107748400 Comment: -Intermittent; please see above discussion -Continue PRN Meclizine and Anti-nausea meds (3) Hypertension Current Visit: Yes Status: Acute Code(s): I10 - ESSENTIAL (PRIMARY) HYPERTENSION SNOMED Code(s): 47514149 Comment: - Wean from Nicardipine gtt ... Better control this am. Continue Amlodipine and Lisinopril - may need to increase lisinopril dose. PRN Hydralzaine. (4) Vitamin D deficiency Current Visit: Yes Status: Acute Code(s): E55.9 - VITAMIN D DEFICIENCY, UNSPECIFIED SNOMED Code(s): 92561642 Comment: - new - Vitamin D level 14 - Continue supplementation, will need to continue on discharge Status and Disposition: -Continue PT eval
[2017-11-13] MEDS: Heparin VIAL(*) 5000 UNITS/ML VIAL (FIVE THOUSAND) SUBCUT SCH ×3 (05:41→21:29)
[2017-11-13 06:00] LABS: Hematocrit 51 % (42-52); Hemoglobin 17.5 g/dl (14.0-18.0); Mean Corpuscular HGB Conc 34 g/dl (31-36); Mean Corpuscular Hemoglobin 31 pg (27-31); Mean Corpuscular Volume 90 fL (80-94); Mean Platelet Volume 7.5 um3 (7.4-10.4); Platelet Count 260 10^3/ul (150-450); Red Blood Count 5.66 10^6/ul (4.00-5.40); Red Cell Distribution Width 14 % (10.5-15)
[2017-11-13] MEDS: hydrALAZINE IV* 20 MG/ML VIAL IV SLOW PU PRN (06:13)
[2017-11-13 06:48] LABS: EGFR Non-African American 90.8 (>60)
[2017-11-13] MEDS: Insulin LISPRO* 1 UNITS UNIT SUBCUT SCH ×4 (09:13→21:28)
[2017-11-13] MEDS: niCARdipine 0.1MG/ML IVPREMIX* 20 MG/200 ML BAG IV SCH ×7 (09:56→22:38)
[2017-11-13] MEDS ORDERED: Benzocaine/Butamben/Tetracain (CETACAINE - SINGLE USE) 5 gm TOPICAL ONE (12:29)
[2017-11-13] MEDS ORDERED: KETAMINE HCL* 50 MG/ML 10 ML VIAL ONE (12:52)
[2017-11-13] MEDS ORDERED: fentaNYL* 50 MCG/ML 2 ML VIAL (100 MCG VIAL) ONE (12:52)
[2017-11-13] MEDS ORDERED: Midazolam* 1 MG/ML 10 ML VIAL (10 MG) ONE (12:53)
[2017-11-13] MEDS ORDERED: Iodixanol* (CONTRAST) 320 MG/ML 100 ML SDV IV SCH (13:40)
--- NOTE | 2017-11-13 14:01 | PN ---
Subjective Date of Service: 11/13/17 Interval History: Pt reports he "feels good". Denies SOB/cough or sputum production. No orthopnea or LE swelling. Denies CP. Reports low grade temp but was asymptomatic, no chills. Per patient her has a wound on his right brannon that has been there for a month from banging his leg on sometime, he reports these are much much better and are healing Family History: Unchanged from Admission Social History: Unchanged from Admission Past Medical History: Unchanged from Admission Objective Active Medications: Acetaminophen (Tylenol Tab*) 975 mg PO Q6H PRN PRN Reason: FEVER/PAIN Last Admin: 11/11/17 21:51 Dose: 975 mg Al Hydrox/Mg Hydrox/Simethicone (Maalox Plus*) 30 ml PO Q6H PRN PRN Reason: INDIGESTION Albuterol (Ventolin 2.5 Mg/3 Ml Neb.Treva*) 2.5 mg INH [id number] AWAKE PRN PRN Reason: sob/wheezing Amlodipine Besylate (Norvasc Tab*) 10 mg PO DAILY [facility] Last Admin: 11/12/17 08:53 Dose: 10 mg Aspirin (Aspirin 81 Mg Chew Tab*) 81 mg PO DAILY [facility] Last Admin: 11/12/17 08:53 Dose: 81 mg Atorvastatin Calcium (Lipitor*) 80 mg PO 1700 [facility] Last Admin: 11/12/17 16:55 Dose: 80 mg Cholecalciferol (Vitamin D Tab*) 2,000 units PO DAILY [facility] Last Admin: 11/12/17 08:53 Dose: 2,000 units Clopidogrel Bisulfate (Plavix Tab*) 75 mg PO DAILY [facility] Last Admin: 11/12/17 10:51 Dose: 75 mg Dextrose (D50w Syringe 50 Ml*) 12.5 gm IV PUSH .FOR FS < 60 - SS PRN PRN Reason: FS < 60 Heparin Sodium (Porcine) (Heparin Vial(*)) 5,000 units SUBCUT Q8HR [facility] Last Admin: 11/13/17 05:41 Dose: 5,000 units Hydralazine HCl (Apresoline Iv*) 10 mg IV SLOW PU Q4H PRN PRN Reason: SYSTOLIC BP GREATER THAN: Last Admin: 11/13/17 06:13 Dose: 10 mg Nicardipine/Sodium Chloride (Cardene 0.1mg/Ml Ivpremix*) 20 mg in 200 mls @ 50 mls/hr IV .(as Initial Rate) [facility] Last Admin: 11/13/17 11:41 Dose: 125 mls/hr Insulin Human Lispro (Humalog*) 0 units SUBCUT ACHS [facility]; Protocol Last Admin: 11/13/17 12:45 Dose: Not Given Iodixanol (Visipaque* 320 (Contrast)) 88 ml IV ONCE [facility] Stop: 11/15/17 13:39 Lisinopril (Prinivil Tab*) 20 mg PO DAILY [facility] Last Admin: 11/12/17 08:53 Dose: 20 mg Magnesium Hydroxide (Milk Of Magnesia Liq*) 30 ml PO Q4H PRN PRN Reason: CONSTIPATION Meclizine HCl (Antivert Tab*) 25 mg PO Q8HR PRN PRN Reason: DIZZINESS Last Admin: 11/12/17 11:39 Dose: 25 mg Ondansetron HCl (Zofran Inj*) 4 mg IV Q4H PRN PRN Reason: NAUSEA/VOMITING Vital Signs - 8 hr 11/13/17 11/13/17 11/13/17 11:46 12:00 12:01 Temperature 99.0 F Pulse Rate 63 65 63 Respiratory 29 31 21 Rate Blood Pressure 151/69 144/63 (mmHg) O2 Sat by Pulse 89 89 89 Oximetry 11/13/17 11/13/17 11/13/17 12:16 12:31 12:46 Temperature Pulse Rate 64 69 71 Respiratory 27 22 24 Rate Blood Pressure 148/63 140/64 153/72 (mmHg) O2 Sat by Pulse 89 90 93 Oximetry 11/13/17 11/13/17 11/13/17 12:56 13:00 13:01 Temperature Pulse Rate 64 64 Respiratory 25 25 25 Rate Blood Pressure 146/66 (mmHg) O2 Sat by Pulse 96 95 Oximetry Oxygen Devices in Use Now: Nasal Cannula Appearance: obese male A+Ox3 in NAD Eyes: No Scleral Icterus, PERRLA Ears/Nose/Mouth/Throat: NL Teeth, Lips, Gums, Mucous Membranes Moist Neck: NL Appearance and Movements; NL JVP Respiratory: Symmetrical Chest Expansion and Respiratory Effort, Clear to Auscultation Cardiovascular: RRR, No Edema, - - 2/6 systolic murmur noted Abdominal: NL Sounds; No Tenderness; No Distention, - - obese Skin: - - right anterior brannon has two small noted opne areas with small amount of exudated, no erthema, appears to be healing well. Neurological: Alert and Oriented x 3, NL Sensation, NL Muscle Strength and Tone Lines/Tubes/Other Access: Clean, Dry and Intact Peripheral IV Nutrition: Taking PO's Result Diagrams: 11/13/17 05:45 11/13/17 05:45 Microbiology and Other Data: Microbiology 11/11/17 03:00 Nasal Screen MRSA (PCR) - Final Nasal Mrsa Not Detected 11/09/17 21:28 Aerobic Blood Culture - Preliminary Blood Venous No Growth Day 1 Anaerobic Blood Culture - Preliminary No Growth Day 1 Assess/Plan/Problems-Billing Assessment: Patient is a 47yo male with a PMH for HTN, DM, Obesity who is here with N/V with dizziness and has concern for new cerebellar CVA. - Patient Problems (1) CVA (cerebral vascular accident) Comment: -Appreciate neurological consult. concern for cardioembolic origin - no noted afib on monitor -MRI - Right PICA infarct, minimal mass effect in 4th ventricle -Discussed repeat CT of head with Dr. Serna, although read as evolving, no significant change or bleed -CTA Head/Neck - negative for large vessel intracranial arterial occlusion or stenosis -Continue ASA, statin, plavix -Continue Tele monitoring -YASSINE scheduled for today but now concern for hypoxia requiring CTA to r/o PE? PNA or fluid overload. No noted distress. Lungs are clear. Unlcear why he is hypoxic - now YASSINE on hold until tomorrow (2) Leukocytosis Comment: - unclear source. low grade temp. add on CRP/sed rate. - Blood cx NTD. Send urine cx. Obtaining CTA. consider endocarditis with murmur (unknown if murmur is new or not) -plan for YASSINE tomorrow (3) Dizziness Comment: -Intermittent; please see above discussion -Continue PRN Meclizine and Anti-nausea meds (4) Hypertension Comment: - Restarted on Nicardipine gtt yesterday, then held again yesterday and now restarted this am for blood presure in the 170's. Cardiology recommend continuing gtt fror now d/t NPO status for YASSINE. Now YASSINE is on hold - will continue to try to wean gtt down. (5) Vitamin D deficiency Comment: - new - Vitamin D level 14 - Continue supplementation, will need to continue on discharge (6) Diabetes Comment: Hemoglobin A1c 7.4 lispro SSI in hospital, Metformin at discharge. Motivated to continue lifestyle changes (7) Obesity Comment: Recent intentional weight loss. Continue lifestyle modification. (8) DVT prophylaxis Comment: Heparin SubQ and SCDs (9) Full code status Status and Disposition: -Continue PT eval
--- NOTE | 2017-11-13 16:10 | RAD ---
INDICATION: Chest pain. Short of breath. Evaluate for pulmonary embolus. COMPARISON: Chest x-ray November 06, 2017 TECHNIQUE: Axial source images were obtained from the thoracic inlet to the hemidiaphragms following administration of [address] angiographic technique was utilized. Coronal and sagittal reconstructed images were acquired. CHEST FINDINGS: Neck/thyroid: The visualized neck to include the thyroid appear normal. Chest wall: There are no acute abnormalities of the bony thorax or chest wall. There is no supraclavicular, infraclavicular, or axillary lymphadenopathy. Lungs : There is bibasilar atelectasis. There is a 5 mm right middle lobe nodule but may also have been evident in 2014 and appears unchanged The pulmonary interstitium appears normal. There are no endobronchial lesions. Cardiomediastinal structures: There is no CT evidence of central pulmonary emboli. Examination is limited to some extent due to patient size. The heart is normal in size. There is no pericardial effusion. There is no evidence of aortic aneurysm or dissection. There is no mediastinal or hilar adenopathy. The esophagus appears normal. Pleura : There are no pleural-based masses or effusions. Other: There are multiple gallstones. There is hepatic steatosis. IMPRESSION: MILDLY LIMITED EXAMINATION DUE TO PATIENT SIZE. NO CENTRAL PULMONARY EMBOLI ARE SEEN. BASILAR ATELECTASIS. MULTIPLE GALLSTONES
[2017-11-13] MEDS: amLODIPine TAB* 5 MG PO SCH (16:20)
[2017-11-13] MEDS: Lisinopril TAB* 10 MG PO SCH (16:20)
[2017-11-13] MEDS: Atorvastatin* 80 MG TAB PO SCH (16:25)
[2017-11-13] MEDS: Aspirin 81 mg CHEW TAB* 81 MG TAB.CHEW PO SCH (16:26)
[2017-11-13] MEDS: Clopidogrel TAB* 75 MG PO SCH (16:26)
[2017-11-13] MEDS: Cholecalciferol TAB* 1000 UNITS PO SCH (16:26)
[2017-11-13 17:23] LABS: Urine Appearance Clear; Urine Blood Negative (Negative); Urine Color Yellow; Urine Ketones Trace (Negative); Urine Protein Negative (Negative); Urine Specific Gravity 1.015 (1.010-1.030); Urine Urobilinogen Negative (Negative)
[2017-11-13] MEDS ORDERED: Vancomycin per Pharmacy* NOTE FOLLOW UP SCH (18:00)
[2017-11-13] MEDS ORDERED: Vancomycin(*) 2,000 MG in NS 0.9% 500 ML* 500 ML IVPB ONE (18:00)
[2017-11-13] MEDS: cefTRIAXone(*) 1 GM in NS 0.9% 50 ML* 50 ML IVPB SCH (18:03)
[2017-11-14] MEDS: niCARdipine 0.1MG/ML IVPREMIX* 20 MG/200 ML BAG IV SCH ×5 (00:22→09:45)
[2017-11-14] MEDS: Vancomycin(*) 1,000 MG in NS 0.9% 250 ML* 250 ML IVPB SCH ×3 (02:37→14:33)
[2017-11-14] MEDS: Heparin VIAL(*) 5000 UNITS/ML VIAL (FIVE THOUSAND) SUBCUT SCH ×3 (05:48→21:26)
[2017-11-14 05:55] LABS: ABS Basophils 0 10^3/ul (0-0.2); ABS Eosinophils 0.1 10^3/ul (0-0.6); ABS Lymphocytes 2.4 10^3/ul (1.0-4.8); ABS Monocytes 1.5 10^3/ul (0-0.8); ABS Neutrophils 10.9 10^3/ul (1.5-7.7); ABS Nucleated RBC 0 10^3/ul; Eosinophil % 0.4 % (0-6); Hematocrit 44 % (42-52); Hemoglobin 15.3 g/dl (14.0-18.0); Lymphocyte % 16.2 % (25-47); Mean Corpuscular HGB Conc 35 g/dl (31-36); Mean Corpuscular Hemoglobin 31 pg (27-31); Mean Corpuscular Volume 90 fL (80-94); Mean Platelet Volume 7.7 um3 (7.4-10.4); Nucleated Red Blood Cells % 0; Platelet Count 224 10^3/ul (150-450); Red Cell Distribution Width 14 % (10.5-15); White Blood Count 14.9 10^3/ul (3.5-10.8)
[2017-11-14 06:17] LABS: EGFR Non-African American 119.4 (>60)
[2017-11-14] MEDS ORDERED: Metoprolol Tartrate TAB* 25 MG PO SCH (09:00)
[2017-11-14] MEDS: Insulin LISPRO* 1 UNITS UNIT SUBCUT SCH ×4 (09:30→21:26)
--- NOTE | 2017-11-14 10:20 | PN ---
Subjective Date of Service: 11/14/17 Interval History: patient reports he feels good overall. Denies dizziness. Feels unsteady on his feet a little. Denies SOB, cough. No CP. No fever or chills. Family History: Unchanged from Admission Social History: Unchanged from Admission Past Medical History: Unchanged from Admission Objective Active Medications: Acetaminophen (Tylenol Tab*) 975 mg PO Q6H PRN PRN Reason: FEVER/PAIN Last Admin: 11/11/17 21:51 Dose: 975 mg Al Hydrox/Mg Hydrox/Simethicone (Maalox Plus*) 30 ml PO Q6H PRN PRN Reason: INDIGESTION Albuterol (Ventolin 2.5 Mg/3 Ml Neb.Treva*) 2.5 mg INH [id number] AWAKE PRN PRN Reason: sob/wheezing Amlodipine Besylate (Norvasc Tab*) 10 mg PO DAILY [facility] Last Admin: 11/13/17 16:20 Dose: Not Given Aspirin (Aspirin 81 Mg Chew Tab*) 81 mg PO DAILY [facility] Last Admin: 11/13/17 16:26 Dose: 81 mg Atorvastatin Calcium (Lipitor*) 80 mg PO 1700 [facility] Last Admin: 11/13/17 16:25 Dose: 80 mg Cholecalciferol (Vitamin D Tab*) 2,000 units PO DAILY [facility] Last Admin: 11/13/17 16:26 Dose: 2,000 units Clopidogrel Bisulfate (Plavix Tab*) 75 mg PO DAILY [facility] Last Admin: 11/13/17 16:26 Dose: 75 mg Dextrose (D50w Syringe 50 Ml*) 12.5 gm IV PUSH .FOR FS < 60 - SS PRN PRN Reason: FS < 60 Heparin Sodium (Porcine) (Heparin Vial(*)) 5,000 units SUBCUT Q8HR [facility] Last Admin: 11/14/17 05:48 Dose: 5,000 units Hydralazine HCl (Apresoline Iv*) 10 mg IV SLOW PU Q4H PRN PRN Reason: SYSTOLIC BP GREATER THAN: Last Admin: 11/13/17 06:13 Dose: 10 mg Nicardipine/Sodium Chloride (Cardene 0.1mg/Ml Ivpremix*) 20 mg in 200 mls @ 50 mls/hr IV .(as Initial Rate) [facility] Last Admin: 11/14/17 09:45 Dose: 80 mls/hr Ceftriaxone Sodium 1 gm/ (Sodium Chloride) 50 mls @ 200 mls/hr IVPB Q24H [facility] Last Admin: 11/13/17 18:03 Dose: 200 mls/hr Vancomycin HCl 1,000 mg/ (Sodium Chloride) 250 mls @ 166.667 mls/hr IVPB Q6H [facility] Last Admin: 11/14/17 07:35 Dose: 166.667 mls/hr Insulin Human Lispro (Humalog*) 0 units SUBCUT ACHS [facility]; Protocol Last Admin: 11/14/17 09:30 Dose: 3 units Iodixanol (Visipaque* 320 (Contrast)) 88 ml IV ONCE [facility] Stop: 11/15/17 13:39 Last Admin: 11/13/17 15:59 Dose: 88 ml Lisinopril (Prinivil Tab*) 20 mg PO DAILY [facility] Last Admin: 11/13/17 16:20 Dose: Not Given Magnesium Hydroxide (Milk Of Magnesia Liq*) 30 ml PO Q4H PRN PRN Reason: CONSTIPATION Meclizine HCl (Antivert Tab*) 25 mg PO Q8HR PRN PRN Reason: DIZZINESS Last Admin: 11/12/17 11:39 Dose: 25 mg Ondansetron HCl (Zofran Inj*) 4 mg IV Q4H PRN PRN Reason: NAUSEA/VOMITING Pharmacy Consult (Vancomycin Per Pharmacy*) 1 note FOLLOW UP .VANC PER PHARMACY [facility] Pharmacy Profile Note (Vancomycin Trough Check) 1 note FOLLOW UP 1330 ONE Stop: 11/14/17 13:31 Vital Signs - 8 hr 11/14/17 11/14/17 11/14/17 08:54 09:00 09:01 Temperature Pulse Rate 66 58 Respiratory 22 23 15 Rate Blood Pressure 151/62 (mmHg) O2 Sat by Pulse 91 92 Oximetry 11/14/17 11/14/17 11/14/17 09:16 09:31 09:46 Temperature Pulse Rate 68 67 72 Respiratory 24 25 Rate Blood Pressure 136/67 145/62 145/80 (mmHg) O2 Sat by Pulse 93 93 95 Oximetry 11/14/17 11/14/17 11/14/17 09:52 10:00 10:01 Temperature Pulse Rate 68 69 Respiratory 11 13 24 Rate Blood Pressure 147/65 (mmHg) O2 Sat by Pulse 93 93 Oximetry Oxygen Devices in Use Now: Nasal Cannula Appearance: obese male laying in bed A+O x3 in NAD Eyes: No Scleral Icterus, PERRLA Ears/Nose/Mouth/Throat: Mucous Membranes Moist Respiratory: Symmetrical Chest Expansion and Respiratory Effort, Clear to Auscultation Cardiovascular: RRR, No Edema, - - 2/6 systolic murmur noted Abdominal: NL Sounds; No Tenderness; No Distention, - - obese Extremities: No Edema, No Clubbing, Cyanosis Skin: No Rash or Ulcers, No Nodules or Sclerosis Neurological: Alert and Oriented x 3, NL Sensation, NL Muscle Strength and Tone Lines/Tubes/Other Access: Clean, Dry and Intact Peripheral IV Nutrition: - - NPO Result Diagrams: 11/14/17 05:40 11/14/17 05:40 Microbiology and Other Data: Microbiology 11/11/17 03:00 Nasal Screen MRSA (PCR) - Final Nasal Mrsa Not Detected 11/09/17 21:28 Aerobic Blood Culture - Preliminary Blood Venous No Growth Day 1 Anaerobic Blood Culture - Preliminary No Growth Day 1 Assess/Plan/Problems-Billing Assessment: Patient is a 47yo male with a PMH for HTN, DM, Obesity who is here with N/V with dizziness and has concern for new cerebellar CVA, uncontrolled HTN, DM and leukocytosis - Patient Problems (1) CVA (cerebral vascular accident) Comment: -Appreciate neurological consult. concern for cardioembolic origin - no noted afib on monitor -MRI - Right PICA infarct, minimal mass effect in 4th ventricle -Discussed repeat CT of head with Dr. Seran, although read as evolving, no significant change or bleed. -CTA Head/Neck - negative for large vessel intracranial arterial occlusion or stenosis -Continue ASA, statin, plavix -Continue Tele monitoring -YASSINE scheduled for today (2) Hypertension Comment: - resistant HTN. Needs agressive management. Most likely uncontrolled for a long time. - Nicardipine gtt continues and has been able to be titrated down overnight, now SBP 140s- restart PO meds now. Discussed with spacecraft systems engineer who recommends restart PO meds now and agressively wean gtt prior to YASSINE (3) Leukocytosis Comment: - unclear source. low grade temp. sed rate negative, CRP 17. Now leukocytsosi trending down after restarting abx. - Blood cx NTD. Urinalysis unremarkable. CTA unremarkable. consider endocarditis with murmur (unknown if murmur is new or not) -plan for YASSINE tomorrow - was started on antibiotics prophylaxsis.... he also has a noted RLE wound that appears to be healing with small amount of exudate noted, wound cx sent 11/13 growing staph. (4) Hypoxia Comment: -CTA 11/13 - negative for PE, showing atelectasis. Aggressive Pulm tolieting with IS Qhour (5) Dizziness Comment: -Intermittent, improving -Continue PRN Meclizine and Anti-nausea meds (6) Vitamin D deficiency Comment: - new - Vitamin D level 14 - Continue supplementation, will need to continue on discharge (7) Diabetes Comment: Hemoglobin A1c 7.4 lispro SSI in hospital, Metformin at discharge. Motivated to continue lifestyle changes (8) Obesity Comment: Recent intentional weight loss. Continue lifestyle modification. (9) DVT prophylaxis Comment: Heparin SubQ and SCDs (10) Full code status Status and Disposition: -Continue PT eval. Most likely home at discharge. Will likely require PT
[2017-11-14] MEDS: amLODIPine TAB* 5 MG PO SCH (10:36)
[2017-11-14] MEDS: Lisinopril TAB* 10 MG PO SCH (10:36)
[2017-11-14] MEDS ORDERED: Vancomycin Trough Check NOTE FOLLOW UP ONE (13:30)
[2017-11-14] MEDS: hydrALAZINE IV* 20 MG/ML VIAL IV SLOW PU PRN ×2 (14:08→23:16)
[2017-11-14] MEDS: Aspirin 81 mg CHEW TAB* 81 MG TAB.CHEW PO SCH (14:40)
[2017-11-14] MEDS: Clopidogrel TAB* 75 MG PO SCH (14:40)
[2017-11-14] MEDS: Cholecalciferol TAB* 1000 UNITS PO SCH (14:40)
--- NOTE | 2017-11-14 15:13 | ECHO ---
Patient: QUENTIN SPARKS [facility] Rec#: [id number] : 1970 Date: 11/14/2017 Age: 47y Height: 183 cm / 72.0 in Weight: 150 kg / 330.6 lbs Sex: M BSA: 2.64 Room#: ICU 8 Admit Date#: 11/11/2017 Type: Inpatient Referring: Cheryl Ruff Reading: Gigi Hardin MD Resource Management Planner: Yadira Garcia RD,RDMS Transthoracic Echocardiogram Indication: CVA BP: 148/71 HR: 73 Rhythm: NSR Findings History: LIMITED ECHO. HTN, DM, obesity Technical Comments: The study quality is fair. Right Atrium: The bubble study is negative. A patent foramen ovale is not demonstrated by agitated contrast. Contrast: Intravenous agitated saline contrast was used to assess intracardiac shunting. Conclusions The bubble study is negative. A patent foramen ovale is not demonstrated by agitated contrast. Limited study See full study of 11/07/17
[2017-11-14] MEDS: Atorvastatin* 80 MG TAB PO SCH (16:57)
[2017-11-14] MEDS ORDERED: Metoprolol Tartrate TAB* 25 MG PO ONE (17:55)
[2017-11-14] MEDS: cefTRIAXone(*) 1 GM in NS 0.9% 50 ML* 50 ML IVPB SCH (18:20)
[2017-11-14] MEDS ORDERED: Furosemide IV* 10 MG/ML VIAL (40 MG) IV SLOW PU ONE (20:00)
[2017-11-15] MEDS: Hydrochlorothiazide TAB* 25 MG PO SCH ×2 (02:06→09:22)
--- NOTE | 2017-11-15 05:17 | PN ---
Progress Note - Progress Note Date of Service: 11/15/17 Note: Cross cover: Received 40IV lasix and started on 25mg HCTZ. Has been off cardene gtt since yesterday AM. Will transfer to floor this AM.
[2017-11-15] MEDS: Heparin VIAL(*) 5000 UNITS/ML VIAL (FIVE THOUSAND) SUBCUT SCH ×3 (05:49→20:51)
[2017-11-15 05:54] LABS: ABS Basophils 0.1 10^3/ul (0-0.2); ABS Eosinophils 0.1 10^3/ul (0-0.6); ABS Lymphocytes 2.3 10^3/ul (1.0-4.8); ABS Monocytes 1.5 10^3/ul (0-0.8); ABS Neutrophils 10.1 10^3/ul (1.5-7.7); ABS Nucleated RBC 0 10^3/ul; Eosinophil % 0.5 % (0-6); Hematocrit 47 % (42-52); Hemoglobin 16.3 g/dl (14.0-18.0); Lymphocyte % 16.4 % (25-47); Mean Corpuscular HGB Conc 35 g/dl (31-36); Mean Corpuscular Hemoglobin 31 pg (27-31); Mean Corpuscular Volume 89 fL (80-94); Mean Platelet Volume 7.3 um3 (7.4-10.4); Nucleated Red Blood Cells % 0; Platelet Count 226 10^3/ul (150-450); Red Blood Count 5.25 10^6/ul (4.00-5.40); Red Cell Distribution Width 15 % (10.5-15)
[2017-11-15 06:15] LABS: EGFR Non-African American 113.9 (>60)
[2017-11-15] MEDS: Insulin LISPRO* 1 UNITS UNIT SUBCUT SCH ×4 (07:52→20:50)
--- NOTE | 2017-11-15 09:00 | PN ---
Subjective Date of Service: 11/15/17 Interval History: Patient sleeping on arrival, awakes easily. Denies any pain. Breathing a little better. no fever/chills. Family History: Unchanged from Admission Social History: Unchanged from Admission Past Medical History: Unchanged from Admission Objective Active Medications: Acetaminophen (Tylenol Tab*) 975 mg PO Q6H PRN PRN Reason: FEVER/PAIN Last Admin: 11/11/17 21:51 Dose: 975 mg Al Hydrox/Mg Hydrox/Simethicone (Maalox Plus*) 30 ml PO Q6H PRN PRN Reason: INDIGESTION Albuterol (Ventolin 2.5 Mg/3 Ml Neb.Treva*) 2.5 mg INH [id number] AWAKE PRN PRN Reason: sob/wheezing Amlodipine Besylate (Norvasc Tab*) 10 mg PO DAILY [facility] Last Admin: 11/14/17 10:36 Dose: 10 mg Aspirin (Aspirin 81 Mg Chew Tab*) 81 mg PO DAILY [facility] Last Admin: 11/14/17 14:40 Dose: 81 mg Atorvastatin Calcium (Lipitor*) 80 mg PO 1700 [facility] Last Admin: 11/14/17 16:57 Dose: 80 mg Cholecalciferol (Vitamin D Tab*) 2,000 units PO DAILY [facility] Last Admin: 11/14/17 14:40 Dose: 2,000 units Clopidogrel Bisulfate (Plavix Tab*) 75 mg PO DAILY [facility] Last Admin: 11/14/17 14:40 Dose: 75 mg Dextrose (D50w Syringe 50 Ml*) 12.5 gm IV PUSH .FOR FS < 60 - SS PRN PRN Reason: FS < 60 Heparin Sodium (Porcine) (Heparin Vial(*)) 5,000 units SUBCUT Q8HR [facility] Last Admin: 11/15/17 05:49 Dose: 5,000 units Hydralazine HCl (Apresoline Iv*) 10 mg IV SLOW PU Q4H PRN PRN Reason: SYSTOLIC BP GREATER THAN: Last Admin: 11/14/17 23:16 Dose: 10 mg Hydrochlorothiazide (Hydrodiuril Tab*) 25 mg PO DAILY [facility] Last Admin: 11/15/17 02:06 Dose: 25 mg Ceftriaxone Sodium 1 gm/ (Sodium Chloride) 50 mls @ 200 mls/hr IVPB Q24H [facility] Last Admin: 11/14/17 18:20 Dose: 200 mls/hr Insulin Human Lispro (Humalog*) 0 units SUBCUT ACHS [facility]; Protocol Last Admin: 11/15/17 07:52 Dose: Not Given Iodixanol (Visipaque* 320 (Contrast)) 88 ml IV ONCE [facility] Stop: 11/15/17 13:39 Last Admin: 11/13/17 15:59 Dose: 88 ml Lisinopril (Prinivil Tab*) 20 mg PO DAILY [facility] Last Admin: 11/14/17 10:36 Dose: 20 mg Magnesium Hydroxide (Milk Of Magnesia Liq*) 30 ml PO Q4H PRN PRN Reason: CONSTIPATION Meclizine HCl (Antivert Tab*) 25 mg PO Q8HR PRN PRN Reason: DIZZINESS Last Admin: 11/12/17 11:39 Dose: 25 mg Ondansetron HCl (Zofran Inj*) 4 mg IV Q4H PRN PRN Reason: NAUSEA/VOMITING 11/15/17 11/15/17 11/15/17 05:31 05:46 06:00 Temperature Pulse Rate 61 63 62 Respiratory 22 25 23 Rate Blood Pressure 155/70 138/62 (mmHg) O2 Sat by Pulse 94 94 94 Oximetry 11/15/17 11/15/17 11/15/17 06:01 06:39 07:25 Temperature 98.0 F 98.6 F Pulse Rate 64 62 63 Respiratory 20 20 20 Rate Blood Pressure 149/67 154/67 149/72 (mmHg) O2 Sat by Pulse 94 98 97 Oximetry 11/15/17 07:32 Temperature Pulse Rate Respiratory 20 Rate Blood Pressure (mmHg) O2 Sat by Pulse Oximetry Oxygen Devices in Use Now: Nasal Cannula Appearance: obese male laying in bed resting A+O x3 in NAD Eyes: No Scleral Icterus, PERRLA Ears/Nose/Mouth/Throat: NL Teeth, Lips, Gums, Mucous Membranes Moist Neck: NL Appearance and Movements; NL JVP Respiratory: Symmetrical Chest Expansion and Respiratory Effort, Clear to Auscultation Cardiovascular: RRR, No Edema, - - 2/6 murmur Abdominal: NL Sounds; No Tenderness; No Distention, - - obese Lymphatic: No Cervical Adenopathy Extremities: No Edema, No Clubbing, Cyanosis Skin: No Rash or Ulcers, No Nodules or Sclerosis Neurological: Alert and Oriented x 3, NL Sensation, NL Gait, NL Muscle Strength and Tone Lines/Tubes/Other Access: Clean, Dry and Intact Peripheral IV Nutrition: Taking PO's Result Diagrams: 11/15/17 05:43 11/15/17 05:43 Microbiology and Other Data: Microbiology 11/11/17 03:00 Nasal Screen MRSA (PCR) - Final Nasal Mrsa Not Detected 11/09/17 21:28 Aerobic Blood Culture - Preliminary Blood Venous No Growth Day 1 Anaerobic Blood Culture - Preliminary No Growth Day 1 Assess/Plan/Problems-Billing Assessment: Patient is a 47yo male with a PMH for HTN, DM, Obesity who is here with N/V with dizziness and has concern for new cerebellar CVA, uncontrolled HTN, DM and leukocytosis - Patient Problems (1) CVA (cerebral vascular accident) Comment: -Appreciate neurological consult. concern for cardioembolic origin - no noted afib on monitor - no noted PFO on TTE -MRI - Right PICA infarct, minimal mass effect in 4th ventricle -Discussed repeat CT of head with Dr. Serna, although read as evolving, no significant change or bleed. -CTA Head/Neck - negative for large vessel intracranial arterial occlusion or stenosis - Echo showing EF 60-65%, mild-mod -Continue ASA, statin, plavix -Continue Tele monitoring -YASSINE canceled d/t respiratory status, anesthesia uncomfortable, significant TORY and atelectasis. -Low suspicion for endocarditis, negative blood cx, murmur noted but has - no vegetation seen on TTE (2) Hypertension Comment: - resistant HTN. Needs agressive management. Most likely uncontrolled for a long time. - Nicardipine gtt off. Continue oral meds and titrate as required (3) Leukocytosis Comment: - Trending down since restarting abx. unclear source, suspect LE wound which wound cx growing staph (negative MRSA). low grade temp resolved. sed rate negative, CRP 17. - Blood cx NTD. Urinalysis unremarkable. CTA unremarkable. low suspicion for endocarditis with murmur (he has ) -D/t respiratory status no YASSINE. (4) Hypoxia Comment: -Lasix given last night, Oxygen requirements trending down. - CTA 11/13 - negative for PE, showing atelectasis. - Aggressive Pulm tolieting with IS Qhour - Give 20 mg IV lasix x 1 now (5) Dizziness Comment: -Intermittent, improving -Continue PRN Meclizine and Anti-nausea meds (6) Vitamin D deficiency Comment: - new - Vitamin D level 14 - Continue supplementation, will need to continue on discharge (7) Diabetes Comment: Hemoglobin A1c 7.4 lispro SSI in hospital, Metformin at discharge. Motivated to continue lifestyle changes (8) Obesity Comment: Recent intentional weight loss. Continue lifestyle modification. (9) DVT prophylaxis Comment: Heparin SubQ and SCDs (10) Full code status Status and Disposition: -Continue PT eval. Most likely home at discharge. Will likely require PT outpatient. Tentative plan for DC home tomorrow
[2017-11-15] MEDS: Lisinopril TAB* 10 MG PO SCH (09:22)
[2017-11-15] MEDS: Clopidogrel TAB* 75 MG PO SCH (09:22)
[2017-11-15] MEDS: Cholecalciferol TAB* 1000 UNITS PO SCH (09:22)
[2017-11-15] MEDS: amLODIPine TAB* 5 MG PO SCH (09:22)
[2017-11-15] MEDS: Aspirin 81 mg CHEW TAB* 81 MG TAB.CHEW PO SCH (09:23)
[2017-11-15] MEDS ORDERED: Furosemide IV* 10 MG/ML 2 ML VIAL (20 MG) IV ONE (11:52)
[2017-11-15] MEDS: Atorvastatin* 80 MG TAB PO SCH (17:39)
[2017-11-15] MEDS: Amoxicillin/Clavulanate TAB* 875 MG PO SCH (20:50)
[2017-11-16] MEDS ORDERED: diPHENhydraMINE PO* 50 MG PO ONE (04:28)
[2017-11-16] MEDS: Heparin VIAL(*) 5000 UNITS/ML VIAL (FIVE THOUSAND) SUBCUT SCH ×2 (05:35→14:00)
[2017-11-16] MEDS: Hydrochlorothiazide TAB* 25 MG PO SCH (08:27)
[2017-11-16] MEDS: Cholecalciferol TAB* 1000 UNITS PO SCH (08:27)
[2017-11-16] MEDS: Lisinopril TAB* 10 MG PO SCH (08:29)
[2017-11-16] MEDS: Clopidogrel TAB* 75 MG PO SCH (08:29)
[2017-11-16] MEDS: amLODIPine TAB* 5 MG PO SCH (08:29)
[2017-11-16] MEDS: Aspirin 81 mg CHEW TAB* 81 MG TAB.CHEW PO SCH (08:30)
[2017-11-16] MEDS: Insulin LISPRO* 1 UNITS UNIT SUBCUT SCH ×2 (08:30→11:51)
[2017-11-16] MEDS ORDERED: diPHENhydraMINE PO* 25 MG PO PRN (08:39)
--- NOTE | 2017-11-16 09:17 | PN ---
Subjective Date of Service: 11/16/17 Interval History: Patient reports he is feeling much better today, improving with PT. Feels that he can go home. No fevers or chills. Reports good appetite. He is off the oxygen as of this am, denies SOB Discussed DC plan and he agrees with plan. Dr. Hansen from [facility] clinic visited with the patient, he is to follow up next week in [facility] Family History: Unchanged from Admission Social History: Unchanged from Admission Past Medical History: Unchanged from Admission Objective Active Medications: Acetaminophen (Tylenol Tab*) 975 mg PO Q6H PRN PRN Reason: FEVER/PAIN Last Admin: 11/11/17 21:51 Dose: 975 mg Al Hydrox/Mg Hydrox/Simethicone (Maalox Plus*) 30 ml PO Q6H PRN PRN Reason: INDIGESTION Albuterol (Ventolin 2.5 Mg/3 Ml Neb.Treva*) 2.5 mg INH [id number] AWAKE PRN PRN Reason: sob/wheezing Amlodipine Besylate (Norvasc Tab*) 10 mg PO DAILY [facility] Last Admin: 11/16/17 08:29 Dose: 10 mg Aspirin (Aspirin 81 Mg Chew Tab*) 81 mg PO DAILY [facility] Last Admin: 11/16/17 08:30 Dose: 81 mg Atorvastatin Calcium (Lipitor*) 80 mg PO 1700 [facility] Last Admin: 11/15/17 17:39 Dose: 80 mg Cholecalciferol (Vitamin D Tab*) 2,000 units PO DAILY [facility] Last Admin: 11/16/17 08:27 Dose: 2,000 units Clopidogrel Bisulfate (Plavix Tab*) 75 mg PO DAILY [facility] Last Admin: 11/16/17 08:29 Dose: 75 mg Dextrose (D50w Syringe 50 Ml*) 12.5 gm IV PUSH .FOR FS < 60 - SS PRN PRN Reason: FS < 60 Diphenhydramine HCl (Benadryl Po*) 25 mg PO Q6H PRN PRN Reason: ITCHING Heparin Sodium (Porcine) (Heparin Vial(*)) 5,000 units SUBCUT Q8HR [facility] Last Admin: 11/16/17 05:35 Dose: 5,000 units Hydralazine HCl (Apresoline Iv*) 10 mg IV SLOW PU Q4H PRN PRN Reason: SYSTOLIC BP GREATER THAN: Last Admin: 11/14/17 23:16 Dose: 10 mg Hydrochlorothiazide (Hydrodiuril Tab*) 25 mg PO DAILY [facility] Last Admin: 11/16/17 08:27 Dose: 25 mg Insulin Human Lispro (Humalog*) 0 units SUBCUT ACHS [facility]; Protocol Last Admin: 11/16/17 08:30 Dose: 2 units Lisinopril (Prinivil Tab*) 20 mg PO DAILY [facility] Last Admin: 11/16/17 08:29 Dose: 20 mg Magnesium Hydroxide (Milk Of Magnesia Liq*) 30 ml PO Q4H PRN PRN Reason: CONSTIPATION Meclizine HCl (Antivert Tab*) 25 mg PO Q8HR PRN PRN Reason: DIZZINESS Last Admin: 11/12/17 11:39 Dose: 25 mg Ondansetron HCl (Zofran Inj*) 4 mg IV Q4H PRN PRN Reason: NAUSEA/VOMITING Vital Signs - 8 hr 11/16/17 11/16/17 11/16/17 04:06 04:23 04:36 Temperature 97.8 F Pulse Rate 63 Respiratory 18 20 Rate Blood Pressure 150/68 (mmHg) O2 Sat by Pulse 98 99 Oximetry 11/16/17 06:13 Temperature Pulse Rate Respiratory 18 Rate Blood Pressure (mmHg) O2 Sat by Pulse Oximetry Oxygen Devices in Use Now: None Appearance: obese male sitting up in a chair in NAD. A+Ox3 Eyes: No Scleral Icterus, PERRLA Ears/Nose/Mouth/Throat: NL Teeth, Lips, Gums Respiratory: Symmetrical Chest Expansion and Respiratory Effort, Clear to Auscultation Cardiovascular: NL Sounds; No Murmurs; No JVD, RRR Abdominal: NL Sounds; No Tenderness; No Distention, No Hepatosplenomegaly Extremities: - Skin: - - right brannon has dime size open superficial area that has no erythema, no drainage, appears to be healing well Neurological: Alert and Oriented x 3, NL Sensation, NL Gait, NL Muscle Strength and Tone Lines/Tubes/Other Access: Clean, Dry and Intact Peripheral IV Nutrition: Taking PO's Result Diagrams: 11/15/17 05:43 11/15/17 05:43 Microbiology and Other Data: Microbiology 11/11/17 03:00 Nasal Screen MRSA (PCR) - Final Nasal Mrsa Not Detected 11/09/17 21:28 Aerobic Blood Culture - Preliminary Blood Venous No Growth Day 1 Anaerobic Blood Culture - Preliminary No Growth Day 1 Assess/Plan/Problems-Billing Assessment: Patient is a 47yo male with a PMH for HTN, DM, Obesity who is here with N/V with dizziness and has concern for new cerebellar CVA, uncontrolled HTN, DM and leukocytosis - Patient Problems (1) CVA (cerebral vascular accident) Comment: - Pt improving -Appreciate neurological consult. no noted afib on monitor - no noted PFO on TTE -MRI - Right PICA infarct, minimal mass effect in 4th ventricle -Discussed repeat CT of head with Dr. Serna, although read as evolving, no significant change or bleed. -CTA Head/Neck - negative for large vessel intracranial arterial occlusion or stenosis - Echo showing EF 60-65%, mild-mod -Continue ASA, statin, plavix -YASSINE canceled d/t respiratory status, anesthesia uncomfortable, significant TORY and atelectasis. -Low suspicion for endocarditis, negative blood cx, murmur noted but has - no vegetation seen on TTE. Discussed with Dr. Collier agrees with plan (2) Hypertension Comment: - resistant HTN. Most likely uncontrolled for a long time. Much better control - Continue oral meds and titrate as required (3) Leukocytosis Comment: - Trending down since restarting abx. unclear source, suspect LE wound which wound cx growing staph (negative MRSA). low grade temp resolved. sed rate negative, CRP 17. - Blood cx NTD. Urinalysis unremarkable. CTA unremarkable. low suspicion for endocarditis with murmur (he has ) -D/t respiratory status no YASSINE. Discussed with ID (4) Hypoxia Comment: -Resolved (5) TORY (obstructive sleep apnea) Status: Acute Comment: concern for undiagnosed TORY - will require sleep study as outpt (6) Dizziness Comment: -resolved (7) Vitamin D deficiency Comment: - new - Vitamin D level 14 - Continue supplementation, will need to continue on discharge (8) Diabetes Comment: Hemoglobin A1c 7.4 lispro SSI in hospital, Metformin at discharge. Motivated to continue lifestyle changes (9) Obesity Comment: Recent intentional weight loss. Continue lifestyle modification. (10) DVT prophylaxis Comment: Heparin SubQ and SCDs (11) Full code status Status and Disposition: - DC home today
[2017-11-16] MEDS: Amoxicillin/Clavulanate TAB* 875 MG PO SCH (09:33)
[2017-11-16 12:17] VITALS: BP 147/64
[2017-11-16] MEDS ORDERED: Cephalexin CAP* 500 MG PO SCH (13:00)
--- NOTE | 2017-11-17 09:05 | DS ---
CC: Dr. Prince Hansen; Dr. Olamide Niño* DISCHARGE SUMMARY: DATE OF ADMISSION: 11/09/17 DATE OF DISCHARGE: 11/16/17 PROVIDER: Blanca Cuevas NP. ATTENDING PHYSICIAN: Dr. Thomas* (report dictated by Blanca Cuevas NP). PRIMARY CARE PROVIDER: No PCP. Will follow up with [facility]. HOSPITAL STATUS: Inpatient. DISCHARGE DIAGNOSES: 1. 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 2. Acute respiratory failure. 3. Vertigo. 4. Uncontrolled hypertension. 5. [id number]-rl-ulrfzxbn aortic stenosis. 6. Type 2 diabetes, uncontrolled. 7. Possible obstructive sleep apnea. 8. Lower right extremity wound with a positive wound culture growing staphylococcus. 9. Leukocytosis. 10. Vitamin D deficiency. 11. Morbid obesity. DISCHARGE MEDICATIONS: 1. Metformin 500 mg p.o. b.i.d. 2. Amlodipine 10 mg p.o. daily. 3. Acetaminophen 650 mg p.o. q. 6 hours p.r.n. 4. Lisinopril 30 p.o. daily. 5. Hydrochlorothiazide 25 mg p.o. daily. 6. Plavix 75 mg p.o. daily. 7. Vitamin D 2000 units p.o. daily. 8. Keflex 500 mg p.o. four times daily x7 days. 9. Lipitor 80 mg p.o. daily. 10. Aspirin 81 mg p.o. daily. HISTORY OF PRESENT ILLNESS AND HOSPITAL COURSE: Please see history and physical by DANNIELLE Horner for full admission details, but in summary, this is a 47-year- old male who had a prior brief hospitalization 2 days prior with hypertensive emergency and presyncopal episode in which he was discharged and then he returned 2 days later on 11/09/17 with a report of dizziness, fever , diaphoresis, occasional dyspnea on exertion, and was admitted for acute respiratory failure, chronic dizziness, and vertigo, fever and leukocytosis of unclear etiology. The patient was admitted to the hospitalist service. On his admission H and P reports, there was some concern for acute respiratory failure in that he was found to have low oxygen in the emergency department of 88%. He was placed on 2 L. His chest x-ray in the emergency department showed no active cardiopulmonary disease. He also presented with leukocytosis of 16 with a negative ESR. Unclear etiology behind his leukocytosis, which was fairly steady throughout hospitalization, initially it was thought he may be possibly having ear infection and was started on Augmentin. This was then discontinued for several days and his white blood cells began to climb again. He was noted to have a right brannon dime-size wound, which had noted draining exudates. Otherwise, there was no erythema and per patient, he has had this for quite some time and has appeared to be healing well. The wound culture grew Staph aureus, and he was restarted on Augmentin, which possibly gave him a rash, which covered his entire back from last night to this morning. The Augmentin was discontinued, he will be sent home on Keflex. In regards to the patient's dizziness on admission, there was concern for his report of dizziness and unsteadiness and was seen in consultation by Dr. Moya, neurologist who had concerns with his 4-day history of gait imbalance and vertigo. On examination, concern is for a stroke involving the brainstem and the patient underwent an MRI of the brain, which showed a right posterior- inferior cerebellar artery infarct with minimal mass effect on the fourth ventricle. The patient underwent a head CTA, which showed no intracranial arterial occlusion or hemodynamic significant stenosis; did show suboptimal arterial opacification with contrast limitations. There were no intracranial aneurysms or vascular malformations evident. He continued to have resistant hypertension requiring nicardipine drip in the ICU. The patient's echocardiogram did show mild- to-moderate aortic stenosis, normal left ventricular systolic function with an estimated EF of 60% to 65%. There was normal right ventricular global systolic function, mild aortic regurgitation, no evidence of mitral regurg, no evidence of mitral stenosis, trace tricuspid regurgitation, mild dilatation of the ascending aorta, no significant pericardial effusion. He underwent a bubble study, which was negative. He was monitored on telemetry with no noted atrial fibrillation. In regards to the patient's respiratory status, he was requiring 6 L of oxygen for multiple days, as well he was noted to have times of apnea when he was sleeping. The patient has been weaned off his oxygen and was given several IV doses of Lasix over the past 2 days, which has helped the patient diurese and now he is currently off oxygen requirements, maintaining his O2 sats of 98% on room air. The patient was supposed to undergo a YASSINE; however, the day he was going to go, he was still on 6 L and also had noted tachycardia. The patient underwent a CTA , which showed "mildly limited examination due to the patient's size, no central pulmonary emboli are seen, bibasilar atelectasis, multiple gallstones". At that time, Anesthesia did not feel comfortable doing the YASSINE as this was going to be done in the OR setting. The next day, he was reevaluated, continued to be on 6 L and recommendation that he was high risk for the YASSINE and Dr. Hardin, dentist/owner at this point thought the procedure was too high risk. Again, since that time, the patient has been diuresed and is off oxygen. His respiratory status is stable. The reason the patient was getting a YASSINE was due to he had a noted low-grade fever on admission with his leukocytosis that was unclear initially and there was concern for endocarditis; however, the patient did have negative blood cultures and most likely the source could be this infected wound on his right brannon as well as post stroke syndrome/inflammation. I did speak with Infectious Disease, Dr. Collier, does not make any further recommendations at this time. DISCHARGE PLAN: 1. The patient does not have a primary care provider. He is to follow up in [facility] with Dr. Hansen or Dr. Niño next week. Dr. Hansen met the patient this afternoon. 2. The patient is to follow up with dentist/owner, Dr. Benites on 12/15/17 as a new patient for his aortic stenosis and hypertension. 3. Follow up with Dr. Serna in 1 month. The patient was instructed he needs to make this appointment himself. 4. The patient has been set up with [facility] for some aide services in the home. 5. He will continue outpatient PT. He is currently using a walker for stability. 6. The patient was instructed to change the dressing on his wounds daily, may wash with soap and water and continue the additional course of antibiotics. 7. The patient is to keep a record of his daily blood pressures to bring to his appointment next week. 8. The patient is stable for discharge to home. TIME SPENT: Approximately 60 minutes were spent on this discharge. BLANCA CUEVAS, LITIGATION EXAMINER [id number]/[facility] #: [id number] [facility] HOSPITALLetty
== END 2017-11-16 15:41 | disposition home health service (06) | DRG 45 ==
LOC: ED 18:12 → MEDTELE 20:50 → ICU 11-11 00:58 → OBSVTOIN 11-11 09:46 → MEDTELE 11-15 06:35
PROVIDERS: ADMIT Hospitalist; ATTEND Internal Medicine
DX: I63.531 Cerebral infarction due to unspecified occlusion or stenosis of right posterior cerebral artery (principal); J96.01 Acute respiratory failure with hypoxia; J98.11 Atelectasis; Z68.41 Body mass index [BMI] 40.0-44.9, adult; I10 Essential (primary) hypertension; E66.01 Morbid (severe) obesity due to excess calories; E74.39 Other disorders of intestinal carbohydrate absorption; D72.829 Elevated white blood cell count, unspecified; H83.09 Labyrinthitis, unspecified ear; R42 Dizziness and giddiness; I51.7 Cardiomegaly; E55.9 Vitamin D deficiency, unspecified; S81.801A Unspecified open wound, right lower leg, initial encounter; R26.81 Unsteadiness on feet; I77.819 Aortic ectasia, unspecified site; I07.1 Rheumatic tricuspid insufficiency; X58.XXXA Exposure to other specified factors, initial encounter; G47.33 Obstructive sleep apnea (adult) (pediatric); B95.8 Unspecified staphylococcus as the cause of diseases classified elsewhere; E11.65 Type 2 diabetes mellitus with hyperglycemia; Z79.82 Long term (current) use of aspirin; Z72.89 Other problems related to lifestyle; Z79.02 Long term (current) use of antithrombotics/antiplatelets; Y92.9 Unspecified place or not applicable; Z82.49 Family history of ischemic heart disease and other diseases of the circulatory system; Z83.3 Family history of diabetes mellitus; Z79.84 Long term (current) use of oral hypoglycemic drugs
CPT/HCPCS: 36415; 70450; 70496; 70498; 70551; 71045; 71275; 74018; 80048; 80053; 80202; 81003; 82306; 83735; 84100; 84439; 84443; 84481; 84484; 85025; 85027; 85379; 85652; 86140; 86376; 87040; 87070; 87077; 87186; 87205; 87640; 87641; 93005; 93308; 99285; A9270-GY; G0378; J0360; J0696; J1644; J1940; J2250; J2765; J3010; J3370; J3490; Q9967

== ENCOUNTER 2019-07-29 16:36 | Emergency (ER) | payer OTHER ==
--- NOTE | 2019-07-29 17:25 | ED ---
HPI Febrile Illness - HPI Summary HPI Summary: Patient complains of sudden onset of chills around 1 PM today with subsequent fever reading 3. Patient called PCP and advised to come to the day. Patient denies any other symptoms including respiratory symptoms. Patient works at [employer] frequent exposure to customers. Medical history as HTN, CVA, DM. Patient on Plavix. - History of Current Complaint Chief Complaint: EDFever Time Seen by Provider: 07/29/19 17:06 Hx Obtained From: Patient Onset/Duration: Started Hours Ago Timing: Constant Current Severity: None Pain Intensity: 0 Pain Scale Used: 0-10 Numeric Associated Signs and Symptoms: Negative - Additional Pertinent History Primary Care Physician: [id number] - Allergy/Home Medications Allergies/Adverse Reactions: Allergies Allergy/AdvReac Type Severity Reaction Status Date / Time No Known Allergies Allergy Verified 07/29/19 16:57 Home Medications: Home Medications Acetaminophen TAB* [Tylenol TAB*] 650 mg PO Q6H PRN tab 11/07/17 [Rx Confirmed 07/29/19] metFORMIN* [Glucophage 500 MG TAB *] 500 mg PO BID 11/09/17 [History Confirmed 07/29/19] Aspirin 81 mg CHEW TAB* 81 mg PO DAILY #30 tab.chew 11/16/17 [Rx Confirmed 07/28] Atorvastatin* [Lipitor 80 MG*] 80 mg PO 1700 #30 tab 11/16/17 [Rx Confirmed ] Cholecalciferol TAB* [Vitamin D TAB*] 2,000 units PO DAILY #60 tab 11/16/17 [Rx Confirmed 07/29/19] Hydrochlorothiazide TAB* [Hydrodiuril TAB*] 25 mg PO DAILY #30 tab 11/16/17 [Rx Confirmed 07/29/19] diPHENhydraMINE PO* [Benadryl PO 25 MG TAB*] 25 mg PO Q6H PRN tab 11/16/17 [Rx Confirmed 07/29/19] lisinopriL [Lisinopril 30 MG-] 30 mg PO DAILY #30 tab 11/16/17 [Rx Confirmed ] amLODIPine TAB* [Norvasc 5 mg TAB*] 5 mg PO DAILY 07/29/19 [History Confirmed ] PMH/Surg Hx/FS Hx/Imm Hx Endocrine/Hematology History: Reports: Hx Diabetes Denies: Hx Blood Disorders - Blood clots Cardiovascular History: Reports: Hx Hypertension Denies: Hx Deep Vein Thrombosis, Hx Pacemaker/ICD Respiratory History: Denies: Hx Chronic Obstructive Pulmonary Disease (COPD) History: Denies: Hx Renal Disease Sensory History: Denies: Hx Contacts or Glasses, Hx Hearing Aid Opthamlomology History: Denies: Hx Contacts or Glasses EENT History: Denies: Hx Deafness Neurological History: Denies: Hx Dementia Psychiatric History: Denies: Hx Panic Disorder - Surgical History Surgery Procedure, Year, and Place: hernia repair x 6 Infectious Disease History: No Infectious Disease History: Denies: Traveled Outside the [place] in Last 30 Days - Family History Known Family History: Positive: Cardiac Disease - Ascending aortic aneurysm, AAA , HTN, Diabetes - Father - Social History Alcohol Use: None Hx Substance Use: No Substance Use Type: Reports: None Hx Tobacco Use: No Smoking Status (MU): Never Smoked Tobacco Review of Systems Positive: Fever, Chills Eyes: Negative ENT: Negative Cardiovascular: Negative Respiratory: Negative Gastrointestinal: Negative Genitourinary: Negative Musculoskeletal: Negative Skin: Negative Neurological/Mental Status: Negative Psychological: Normal All Other Systems Reviewed And Are Negative: Yes Physical Exam Triage Information Reviewed: Yes Vital Signs On Initial Exam: Initial Vitals Temp Pulse Resp BP Pulse Ox 102.8 F 92 18 177/69 97 07/29/19 16:57 07/29/19 16:57 07/29/19 16:57 07/29/19 16:57 07/29/19 16:57 Vital Signs Reviewed: Yes Appearance: Positive: Well-Appearing Skin: Positive: Warm Head/Face: Positive: Normal Head/Face Inspection Eyes: Positive: Normal ENT: Positive: Normal ENT inspection Neck: Positive: Supple Respiratory/Lung Sounds: Positive: Clear to Auscultation Cardiovascular: Positive: Normal Abdomen Description: Positive: Nontender Musculoskeletal: Positive: Normal Neurological: Positive: Normal Psychiatric: Positive: Normal AVPU Assessment: Alert - Dhiraj Coma Scale Best Eye Response: 4 - Spontaneous Best Motor Response: 6 - Obeys Commands Best Verbal Response: 5 - Oriented Coma Scale Total: 15 Procedures - Sedation Patient Received Moderate/Deep Sedation with Procedure: No Diagnostics - Vital Signs Vital Signs Temp Pulse Resp BP Pulse Ox 07/29/19 16:57 102.8 F 92 18 177/69 97 - Laboratory Lab Results: Lab Results 07/29/19 Range/Units 17:03 Influenza A (Rapid) Pending Influenza B (Rapid) Pending Result Diagrams: 07/29/19 18:38 07/29/19 18:38 Lab Statement: Any lab studies that have been ordered have been reviewed, and results considered in the medical decision making process. Course/Dx - Course Course Of Treatment: Patient complains of sudden onset of chills around 1 PM today with subsequent fever reading 3. Patient called PCP and advised to come to the day. Patient denies any other symptoms including respiratory symptoms. Patient works at [employer] frequent exposure to customers. Medical history as HTN, CVA, DM. Patient on Plavix. Febrile 102.8. Vital signs otherwise within normal limits. Chest x-ray unremarkable. - Diagnoses Provider Diagnoses: Fever Discharge ED - Sign-Out/Discharge Documenting (check all that apply): Patient Departure - Discharge Plan Condition: Stable Disposition: HOME Patient Education Materials: Fever in Adults (ED) Referrals: No Primary Care Phys,NOPCP [Primary Care Provider] - Additional Instructions: Alternate ibuprofen 600 mg with Tylenol 650 mg at 3 hours for control of fever. You were not tested for coronavirus at this time. Please self quarantine until free of symptoms. Return to the ED for any concerning symptoms. - Billing Disposition and Condition Condition: STABLE Disposition: Home
[2019-07-29 17:28] LABS: Influenza A Molecular Negative (Negative); Influenza B Molecular Negative (Negative)
[2019-07-29] MEDS ORDERED: Acetaminophen TAB* 325 MG PO ONE (17:28)
[2019-07-29 18:52] LABS: ABS Lymphocytes 0.9 10^3/ul (1.0-4.8); ABS Monocytes 0.6 10^3/ul (0-0.8); ABS Neutrophils 8.1 10^3/ul (1.5-7.7); Eosinophil % 0.2 %; Hematocrit 44 % (42-52); Hemoglobin 15.3 g/dL (14.0-18.0); Lymphocyte % 9.7 %; Mean Corpuscular HGB Conc 35 g/dL (31-36); Mean Corpuscular Hemoglobin 31 pg (27-31); Mean Corpuscular Volume 87 fL (80-94); Mean Platelet Volume 7.7 fL (7.4-10.4); Platelet Count 218 10^3/uL (150-450); Red Blood Count 5.03 10^6 /uL (4.18-5.48); Red Cell Distribution Width 15 % (10-15); White Blood Count 9.7 10^3/uL (3.5-10.8)
[2019-07-29 19:12] LABS: Albumin/Globulin Ratio 1.3 (1-3); BUN/Creatinine Ratio 17.3 (8-20); C Reactive Protein 18.61 mg/L (<8.01); Calcium 9.4 mg/dL (8.6-10.3); EGFR African American 98.8 (>60); EGFR Non-African American 81.6 (>60); Globulin 3.1 g/dL (2-4); Potassium 4.2 mmol/L (3.5-5.0); Total Bilirubin 0.7 mg/dL (0.2-1.0); Total Protein 7.1 g/dL (6.4-8.9)
[2019-07-29 19:29] LABS: Urine Appearance Clear; Urine Bilirubin Negative (Negative); Urine Blood Negative (Negative); Urine Color Yellow; Urine Glucose Negative (Negative); Urine Ketones Negative (Negative); Urine Nitrite Negative (Negative); Urine Protein 1+(30 mg/dL) (Negative); Urine Specific Gravity 1.026 (1.010-1.030); Urine Urobilinogen Negative (Negative)
[2019-07-29 19:37] VITALS: BP 0/0
[2019-07-29 19:38] LABS: Urine Bacteria Absent (Absent); Urine Red Blood Cell Trace(0-2/hpf) (Absent); Urine White Blood Cell Absent (Absent)
--- NOTE | 2019-07-31 00:15 | PN ---
Progress Note - Progress Note Date of Service: 07/31/19 Note: This provider informed by microbiology stephanie that patient has gram-positive cocci in clusters on preliminary aerobic blood culture results. Negative MRSA, negative staph aureus. Patient was called and phone rang a couple times and then stopped. There was no voicemail, unable to leave message. A note will be left for morning PA to call and follow-up.
--- NOTE | 2019-07-31 06:14 | ED ---
Imaging and Labs Follow Up Follow Up Type: Labs/Cultures Labs/Culture Result: aerobic bottle preliminary shows gram pos cocci Patient Communication/Plan: left vm at7:14am explaining results and that should return to ED. Provider Diagnoses: Fever
== END 2019-07-29 19:36 | disposition home or self-care (01) ==
LOC: ED 16:36
DX: R50.9 Fever, unspecified (principal); I10 Essential (primary) hypertension; Z86.73 Personal history of transient ischemic attack (TIA), and cerebral infarction without residual deficits; E11.9 Type 2 diabetes mellitus without complications; Z79.84 Long term (current) use of oral hypoglycemic drugs; Z79.82 Long term (current) use of aspirin; Z82.49 Family history of ischemic heart disease and other diseases of the circulatory system; Z79.899 Other long term (current) drug therapy
CPT/HCPCS: 36415; 71045; 80053; 81003; 81015; 83605; 85025; 86140; 87040; 87077; 87150; 87205; 99283; A9270-GY

== ENCOUNTER 2023-01-02 19:40 | Inpatient (IN) ==
[2023-01-02 20:14] LABS: ABS Basophils 0.1 10^3/uL (0.0-0.1); ABS Eosinophils 0.1 10^3/uL (0.0-0.5); ABS Lymphocytes 1.5 10^3/uL (1.0-4.8); ABS Monocytes 0.4 10^3/uL (0.0-1.1); ABS Neutrophils 12.1 10^3/uL (1.5-7.6); ABS Nucleated RBC 0.03 10^3/ul; Eosinophil % 0.5 %; Hematocrit 46.8 % (38-53); Hemoglobin 16.4 g/dL (13.2-16.3); Lymphocyte % 10.5 %; Mean Corpuscular Hgb Conc 35.1 g/dL (31-36); Mean Corpuscular Volume 88.4 fL (80-97); Mean Platelet Volume 7.8 fL (7.5-11.2); Nucleated Red Blood Cells % 0.2 /100 WBC (0.0-0.4); Platelet Count 194 10^3/uL (150-450); Red Blood Count 5.29 10^6/uL (4.06-5.63); Red Cell Distribution Width 16.2 % (12-17); White Blood Count 14.1 10^3/uL (3.6-10.2)
[2023-01-02] MEDS ORDERED: Ondansetron 4 mg VIAL 2 MG/ML 2 ml VIAL IV ONE (20:20)
[2023-01-02 20:34] LABS: Albumin 4.7 g/dL (3.2-5.2); Albumin/Globulin Ratio 1.6 (1-3); Calcium 9.8 mg/dL (8.6-10.3); Creatinine, Serum 1.11 mg/dL (0.67-1.17); Globulin 2.9 g/dL (2-4); Potassium 3.5 mmol/L (3.5-5.0); Total Bilirubin 2.6 mg/dL (0.2-1.0); Total Protein 7.6 g/dL (6.4-8.9); eGFR CKD-EPI 80.4 (>60)
[2023-01-02 20:46] LABS: INR 1.02 (0.83-1.13)
[2023-01-02 21:30] LABS: High Sensitivity Troponin 1 Hr 11 pg/mL (<20)
[2023-01-02] MEDS ORDERED: Piperacillin/Tazobac 3.375 BAG 3.375 GM/100 ML BAG IV ONE (22:21)
[2023-01-02] MEDS ORDERED: oxyCODONE/Acetamin 5/325 mg TAB PO PRN (22:27)
[2023-01-02] MEDS ORDERED: Ondansetron 4 mg VIAL 2 MG/ML 2 ml VIAL IV PRN (22:27)
[2023-01-02] MEDS ORDERED: hydrALAZINE 20 mg/ml 1 ML Vial IV IV SLOW PU PRN (22:31)
[2023-01-02] MEDS ORDERED: Enalaprilat IV 1.25 mg/ml 1 ml VIAL (1.25 MG) IV PRN (22:32)
[2023-01-02] MEDS ORDERED: Dextrose 50% Syringe 50 ml 25 GM/50 ML SYRINGE IV PUSH PRN (22:33)
[2023-01-03] MEDS: NS 0.9% 1000 ml BAG 1,000 ML IV SCH (01:07)
[2023-01-03] MEDS: HYDROmorphone 1 MG/1 ML SYRINGE IV SLOW PU PRN ×2 (05:54→23:10)
[2023-01-03] MEDS: Piperacillin/Tazobac 3.375 BAG 3.375 GM/100 ML BAG IV SCH ×3 (05:57→19:40)
[2023-01-03] MEDS ORDERED: NS 0.9% 1000 ml BAG 1,000 ML IV.FLUID IV ONE (07:13)
[2023-01-03 07:41] LABS: ABS Lymphocytes 0.4 10^3/uL (1.0-4.8); ABS Monocytes 1.1 10^3/uL (0.0-1.1); ABS Neutrophils 18.5 10^3/uL (1.5-7.6); ABS Nucleated RBC 0.01 10^3/ul; Hematocrit 41.4 % (38-53); Hemoglobin 14.1 g/dL (13.2-16.3); Mean Corpuscular Hemoglobin 30.3 pg (27-33); Mean Corpuscular Hgb Conc 34.2 g/dL (31-36); Mean Corpuscular Volume 88.8 fL (80-97); Nucleated Red Blood Cells % 0.1 /100 WBC (0.0-0.4); Platelet Count 122 10^3/uL (150-450); Red Blood Count 4.66 10^6/uL (4.06-5.63); Red Cell Distribution Width 16.2 % (12-17)
[2023-01-03 07:57] LABS: Albumin 3.4 g/dL (3.2-5.2); Calcium 8.2 mg/dL (8.6-10.3); Potassium 3.1 mmol/L (3.5-5.0); Total Bilirubin 5.1 mg/dL (0.2-1.0)
[2023-01-03 08:03] LABS: Albumin/Globulin Ratio 1.5 (1-3); C Reactive Protein 62.62 mg/L (<8.01); Creatinine, Serum 2.42 mg/dL (0.67-1.17); Globulin 2.2 g/dL (2-4); Total Protein 5.6 g/dL (6.4-8.9); eGFR CKD-EPI 31.6 (>60)
[2023-01-03] MEDS ORDERED: NS 0.9% 1000 ml BAG 1,000 ML IV ONE (08:53)
[2023-01-03] MEDS: Norepinephrine 16MCG/ML BAGD5W 4,000 MCG/250 ML BAG IV SCH ×3 (09:16→23:00)
[2023-01-03] MEDS: KCL 20 MEQ/100 ML IVPREMIX 20 MEQ/100 ML BAG IV SCH ×3 (09:47→16:32)
[2023-01-03 10:19] LABS: Magnesium 1.5 mg/dL (1.9-2.7)
[2023-01-03] MEDS ORDERED: Magnesium Sulfate IV 3 GM in NS 0.9% 100 ml BAG 100 ML IVPB ONE (11:14)
[2023-01-03] MEDS ORDERED: Sulfur Hexaflouride MICROSPHR 25 MG VIAL ONE (11:19)
[2023-01-03] MEDS ORDERED: fentaNYL 100 mcg/2 ml 50 MCG/ML VIAL ONE ×2 (11:47)
[2023-01-03] MEDS ORDERED: Lidocaine 1% VIAL 10 MG/ML 30 ML VIAL ONE (12:40)
[2023-01-03 13:06] LABS: Indirect Bilirubin 2.1 mg/dL (0.3-1.0)
[2023-01-03] MEDS ORDERED: Albumin Human 5% 12.5 GM/250 ML BTL IV ONE (13:22)
[2023-01-03 15:10] LABS: Urine Appearance Turbid; Urine Bilirubin Negative (Negative); Urine Blood 1+ (Negative); Urine Color Amber; Urine Glucose 1+(50 mg/dL) (Negative); Urine Ketones Negative (Negative); Urine Nitrite Negative (Negative); Urine Protein 2+(100 mg/dL) (Negative); Urine Specific Gravity 1.031 (1.002-1.030); Urine Urobilinogen Negative (Negative)
[2023-01-03 15:27] LABS: Urine Amorphous Crystals Present (Absent); Urine Bacteria 1+ (Absent); Urine Granular Casts Present (Absent); Urine Red Blood Cell 3+(>10/hpf) (Absent); Urine White Blood Cell 3+(>20/hpf) (Absent)
[2023-01-03] MEDS ORDERED: Piperacillin/Tazobac 3.375 BAG 3.375 GM/100 ML BAG IV ONE (15:33)
[2023-01-03] MEDS ORDERED: Zosyn per Pharmacy NOTE FOLLOW UP SCH (16:00)
[2023-01-03] MEDS ORDERED: Enoxaparin 40 MG/0.4 ML SYR SUBCUT SCH ×2 (17:00→21:00)
[2023-01-03 17:14] VITALS: BP 95/57
[2023-01-03 21:17] LABS: Albumin 3.6 g/dL (3.2-5.2); Albumin/Globulin Ratio 1.6 (1-3); Calcium 7.9 mg/dL (8.6-10.3); Creatinine, Serum 3.28 mg/dL (0.67-1.17); Globulin 2.3 g/dL (2-4); Potassium 4.4 mmol/L (3.5-5.0); Total Bilirubin 5.9 mg/dL (0.2-1.0); Total Protein 5.9 g/dL (6.4-8.9); eGFR CKD-EPI 21.9 (>60)
[2023-01-03 23:30] LABS: PCO2 Arterial 48 mmHg (35-45); PO2 Arterial 67 mmHg (80-100)
[2023-01-03] MEDS: VASOPRESSIN IVPREMIX BTL 40 UNIT/100 ML BTL IV ONE (23:30)
[2023-01-04] MEDS: Norepinephrine 16MCG/ML BAGD5W 4,000 MCG/250 ML BAG IV SCH ×6 (01:05→10:18)
[2023-01-04] MEDS: NS 0.9% 1000 ml BAG 1,000 ML IV SCH (01:07)
[2023-01-04] MEDS ORDERED: PHENYLEPHRINE DRIP IVPREMIX 50 MG/250 ML BAG IV SCH (03:00)
[2023-01-04] MEDS ORDERED: Vasopressin 100 UNITS in D5W 250 ml BAG 245 ML IV SCH (03:00)
[2023-01-04] MEDS ORDERED: VASOPRESSIN IVPREMIX BTL 40 UNIT/100 ML BTL IV SCH ×2 (03:15→03:51)
[2023-01-04] MEDS: VASOPRESSIN IVPREMIX BTL 40 UNIT/100 ML BTL IV ONE (03:51)
[2023-01-04] MEDS: Piperacillin/Tazobac 3.375 BAG 3.375 GM/100 ML BAG IV SCH (04:09)
[2023-01-04 05:40] LABS: Hematocrit 38.1 % (38-53); Hemoglobin 12.2 g/dL (13.2-16.3); Mean Corpuscular Hemoglobin 30.3 pg (27-33); Mean Corpuscular Hgb Conc 32.1 g/dL (31-36); Mean Corpuscular Volume 94.5 fL (80-97); Red Blood Count 4.03 10^6/uL (4.06-5.63); Red Cell Distribution Width 18.1 % (12-17); White Blood Count 27.1 10^3/uL (3.6-10.2)
[2023-01-04 05:51] LABS: ABS Lymphocytes 0.9 10^3/uL (1.0-4.8); ABS Monocytes 1.3 10^3/uL (0.0-1.1); ABS Neutrophils 24.8 10^3/uL (1.5-7.6); Lymphocyte % 3.3 %; Mean Platelet Volume 8.6 fL (7.5-11.2); Platelet Count 85 10^3/uL (150-450)
[2023-01-04 05:55] LABS: Albumin 3.4 g/dL (3.2-5.2); Albumin/Globulin Ratio 1.5 (1-3); Calcium 7.2 mg/dL (8.6-10.3); Creatinine, Serum 3.81 mg/dL (0.67-1.17); Globulin 2.3 g/dL (2-4); Magnesium 1.9 mg/dL (1.9-2.7); Potassium 4.3 mmol/L (3.5-5.0); Total Bilirubin 6.4 mg/dL (0.2-1.0); Total Protein 5.7 g/dL (6.4-8.9); eGFR CKD-EPI 18.3 (>60)
[2023-01-04] MEDS ORDERED: Lactated Ringers 1000 ml BAG 1,000 ML IV ONE (06:01)
[2023-01-04 07:31] LABS: PCO2 Arterial 46 mmHg (35-45); PO2 Arterial 76 mmHg (80-100)
== END 2023-01-04 11:45 | disposition short-term general hospital (02) | DRG 710 ==
LOC: ED 19:40 → EDHOLD 19:40 → ICU 01-03 11:46
PROVIDERS: ADMIT Surgery; ATTEND Internal Medicine Critical Care Medicine

== ENCOUNTER 2023-04-25 10:13 | Observation (INO) ==
[~2023-04-25 10:13] MED LIST: Buffered Lidocaine 1% SYRIN 1 ml INTRADERM ONE; Desflurane 240 ML INH ONE; Dexamethasone IV 4 MG/ML VIAL 1 ml VIAL ONE; HYDROcodone/ACETAMIN 5/325 mg TAB PO PRN; Lactated Ringers 1000 ml BAG 1,000 ML IV SCH; Lidocaine 2% PF 5 ML VIAL ONE; Metoclopramide 5 MG/ML VIAL (10 mg) IV PRN; Midazolam 2 mg/2 ml VIAL 1 mg/ml 2 ml VIAL (2 mg) ONE; Naloxone 0.4 mg VIAL 0.4 mg/ml 1 ml VIAL IV PRN; Ondansetron 4 mg VIAL 2 MG/ML 2 ml VIAL IV PRN; Ondansetron 4 mg VIAL 2 MG/ML 2 ml VIAL ONE; Propofol 10 MG/ML 20 ML BTL ONE; Rocuronium 50 mg VIAL 10 mg/ml 5 ml VIAL (50 mg) ONE; fentaNYL 250 mcg/5 ml 50 MCG/ML 5 ml VIAL (250 MCG) ONE
[2023-04-25] MEDS ORDERED: ceFAZolin *3* GM in NS PREMIX 0 GM/0 ML BAG IV ONE (10:56)
[2023-04-25] MEDS ORDERED: ceFAZolin *3* GM in NS PREMIX 3 GM/100 ML BAG IV ONE (10:58)
[2023-04-25] MEDS ORDERED: Bupivacaine 0.5% SDV PF 30ML VIAL ONE (12:39)
[2023-04-25] MEDS ORDERED: ceFAZolin VIAL VIAL ONE (13:34)
[2023-04-25] MEDS ORDERED: fentaNYL 100 mcg/2 ml 50 MCG/ML VIAL ONE (16:32)
[2023-04-25] MEDS ORDERED: Ondansetron 4 mg VIAL 2 MG/ML 2 ml VIAL ONE (16:33)
[2023-04-25] MEDS ORDERED: HYDROcodone/ACETAMIN 5/325 mg TAB ONE (16:33)
[2023-04-25] MEDS ORDERED: Metoclopramide 5 MG/ML VIAL (10 mg) ONE (16:33)
[2023-04-25] MEDS: fentaNYL 100 mcg/2 ml 50 MCG/ML VIAL IV PRN ×2 (16:37→16:47)
[2023-04-25] MEDS ORDERED: Ondansetron 4 mg VIAL 2 MG/ML 2 ml VIAL IV PRN (18:44)
[2023-04-25] MEDS ORDERED: Dextrose 50% Syringe 50 ml 25 GM/50 ML SYRINGE IV PUSH PRN (19:06)
[2023-04-25] MEDS ORDERED: Enoxaparin 40 MG/0.4 ML SYR SUBCUT SCH (21:30)
[2023-04-25] MEDS: Calcium Carb (TUMS) 500 mg CHEW TAB PO SCH (21:55)
[2023-04-26] MEDS ORDERED: Cholecalciferol (VIT D3) 1,000 unit TAB PO SCH (09:00)
[2023-04-26] MEDS: Calcium Carb (TUMS) 500 mg CHEW TAB PO SCH (09:02)
[2023-04-26 10:54] VITALS: BP 130/65
== END 2023-04-26 11:55 | disposition home or self-care (01) ==
LOC: SSU 10:13 → OR 10:13
PROVIDERS: ADMIT Surgery Surgical Critical Care; ATTEND Surgery Surgical Critical Care